=== PATIENT | female | born 1945 | race Caucasian/White ===

== ENCOUNTER → 2018-02-06 | Outpatient (CLI) | payer MEDICARE, OTHER ==
[~2018-02-06] MED LIST: ACET500 PO; ALBU3IS INH; ALBU90OI INH; ALBU90OI61 INH; ASPI81CH PO; AZAT50 PO; AZIT250 PO; AZIT500 PO; Amoxicillin500 MG PO; BUME2 PO; CALGLU500; CALTRATE 600 +1 EACH PO; CARB50; CEFU250; CEPH500 PO; DICY20 PO; DILT120; DILT240 PO; DIOVAN/HCTZ; DIPATR PO; DOCU100 PO; ELIQUIS5 MG PO; FLUC150A PO; FLUT.05NI; FURO20 PO; GLIP2.5ER PO; HYDACE10; HYDCHL25; HYDHCL25 PO; HYDSUL200 PO; IBUP600 PO; IPRAOI INH; LACT10SY PO; LEVFLO500 PO; LEVSOD125; LEVSOD150; LEVSOD150 PO; LEVSOD175 PO; MAGCHL64ER; METO100 PO; MUPI1NAS; NITRSPRAY SL; OLME40 PO; OLOP.1OPSO BOTHEYES; OLOP.1OPSO OD; OMEG1CAP30 PO; OMEP20ER; OXYACE5T PO; OXYC10TA19 PO; OXYC30 PO; OXYC40ER PO; OXYC5; OXYC5 PO; PANT40; PANT40 PO; POTA10T PO; POTA20PAC PO; POTCHL10ER; POTCHL20ER; PROP10 PO; PROP20; PROP40; PROP40 PO; RXPROM25 PO; SALM50IP IH; SENN187 PO; SIME80CH PO; SUCR1 PO; Ultram50 MG PO; VALS80; VARE1 PO; WARF5 PO; Zofran Odt8 MG SL; [UNRECOGNIZED DRUG - CODE] PO; [UNRECOGNIZED DRUG - REMARK]; levothyroxine; oxygen
[2018-02-10 13:30] LABS: Stool Occult Bld Immuno 1 Negative (NEGATIVE); Stool Occult Bld Immuno 2 Negative (NEGATIVE)
== END ==
LOC: OLS 14:55
PROVIDERS: Internal Medicine Gastroenterology
DX: Z86.010 Personal history of colon polyps (principal)
CPT/HCPCS: 82274

== ENCOUNTER → 2019-01-21 | Outpatient (CLI) | payer MEDICARE, OTHER ==
[2019-01-22 08:03] LABS: Source, Urine Clean Catch
[2019-01-22 16:28] LABS: Appearance, Urine Clear (Clear); Bilirubin, Urine Neg (Neg); Blood, Urine 1+ (Neg); Color, Urine Yellow (P-Yellow); Glucose Qualitative, Urine Neg (Neg); Ketones, Urine Neg (Neg); Leukocyte Esterase, Urine 2+ (Neg); Nitrite, Urine Neg (Neg); Protein, Urine Neg (Neg); Urobilinogen, Urine NORM (Normal)
[2019-01-22 16:40] LABS: Bacteria Few /hpf; Squamous Epithelial Cells Few /hpf (Few)
== END ==
LOC: LAB SHORT 18:00 → LAB 18:00
PROVIDERS: Nurse Practitioner Family
DX: N39.0 Urinary tract infection, site not specified (principal)
CPT/HCPCS: 81001; 87086

== ENCOUNTER 2019-02-03 14:17 | Emergency (ER) | payer MEDICARE, OTHER ==
[~2019-02-03] VITALS: Ht 147.3 cm; Wt 72.6 kg
[2019-02-03] MEDS ORDERED: OXYC15ER PO (15:04)
== END 2019-02-03 15:24 | disposition home or self-care (01) ==
LOC: ER 14:17
DX: T20.26XA Burn of second degree of forehead and cheek, initial encounter (principal); T20.22XA Burn of second degree of lip(s), initial encounter; T31.0 Burns involving less than 10% of body surface; X08.8XXA Exposure to other specified smoke, fire and flames, initial encounter; Z88.2 Allergy status to sulfonamides; Z91.041 Radiographic dye allergy status; Z88.8 Allergy status to other drugs, medicaments and biological substances; Z91.013 Allergy to seafood; Z79.899 Other long term (current) drug therapy; J44.9 Chronic obstructive pulmonary disease, unspecified; I10 Essential (primary) hypertension
CPT/HCPCS: 16020; 99283-25

== ENCOUNTER 2019-02-04 12:14 | Day surgery (SDC) | payer MEDICARE, OTHER ==
[~2019-02-04 12:14] MED LIST changes: +OXYC15ER PO
== END 2019-02-04 22:46 | disposition home or self-care (01) ==
LOC: WOUND 12:14
DX: T28.0XXA Burn of mouth and pharynx, initial encounter (principal); T20.30XA Burn of third degree of head, face, and neck, unspecified site, initial encounter; I11.0 Hypertensive heart disease with heart failure; I50.9 Heart failure, unspecified; E11.9 Type 2 diabetes mellitus without complications; I25.10 Atherosclerotic heart disease of native coronary artery without angina pectoris; J44.9 Chronic obstructive pulmonary disease, unspecified; E78.5 Hyperlipidemia, unspecified; F17.200 Nicotine dependence, unspecified, uncomplicated; Z88.2 Allergy status to sulfonamides; Z99.81 Dependence on supplemental oxygen; Z91.041 Radiographic dye allergy status; Z91.013 Allergy to seafood; Z88.8 Allergy status to other drugs, medicaments and biological substances
CPT/HCPCS: G0463

== ENCOUNTER 2019-02-05 15:00 | Day surgery (SDC) | payer MEDICARE, OTHER | END 2019-02-05 22:46 | disposition home or self-care (01) | LOC: WOUND 15:00 | DX: T28.0XXA Burn of mouth and pharynx, initial encounter (principal); T20.30XA Burn of third degree of head, face, and neck, unspecified site, initial encounter; I11.0 Hypertensive heart disease with heart failure; I50.9 Heart failure, unspecified; E11.9 Type 2 diabetes mellitus without complications; I25.10 Atherosclerotic heart disease of native coronary artery without angina pectoris; J44.9 Chronic obstructive pulmonary disease, unspecified; Z99.81 Dependence on supplemental oxygen; E78.5 Hyperlipidemia, unspecified | CPT/HCPCS: G0463 ==

== ENCOUNTER 2019-02-12 13:45 | Day surgery (SDC) | payer MEDICARE, OTHER | END 2019-02-12 23:00 | disposition home or self-care (01) | LOC: WOUND 13:45 | DX: T28.0XXA Burn of mouth and pharynx, initial encounter (principal); T20.30XA Burn of third degree of head, face, and neck, unspecified site, initial encounter; I11.0 Hypertensive heart disease with heart failure; I50.9 Heart failure, unspecified; I25.10 Atherosclerotic heart disease of native coronary artery without angina pectoris; E11.9 Type 2 diabetes mellitus without complications; J44.9 Chronic obstructive pulmonary disease, unspecified; E78.5 Hyperlipidemia, unspecified ==

== ENCOUNTER 2019-02-17 15:03 | Day surgery (SDC) | payer MEDICARE, OTHER | END 2019-02-17 22:43 | disposition home or self-care (01) | LOC: WOUND 15:03 | DX: Z09 Encounter for follow-up examination after completed treatment for conditions other than malignant neoplasm (principal); J44.9 Chronic obstructive pulmonary disease, unspecified; I11.0 Hypertensive heart disease with heart failure; I50.9 Heart failure, unspecified; E11.9 Type 2 diabetes mellitus without complications; E78.5 Hyperlipidemia, unspecified; M32.9 Systemic lupus erythematosus, unspecified; Z87.828 Personal history of other (healed) physical injury and trauma | CPT/HCPCS: G0463 ==

== ENCOUNTER → 2019-04-14 | Outpatient (CLI) | payer MEDICARE, OTHER ==
[2019-04-14 18:42] LABS: Source, Urine Catheter
[2019-04-14 19:00] LABS: Bilirubin, Urine Neg (Neg); Blood, Urine 1+ (Neg); Glucose Qualitative, Urine Neg (Neg); Ketones, Urine Neg (Neg); Leukocyte Esterase, Urine Neg (Neg); Nitrite, Urine Neg (Neg); Protein, Urine Neg (Neg); Urobilinogen, Urine NORM (Normal)
[2019-04-14 19:23] LABS: Appearance, Urine Hazy (Clear); Color, Urine Yellow (P-Yellow)
[2019-04-14 19:25] LABS: Squamous Epithelial Cells Few /hpf (Few)
[2019-04-14 19:28] LABS: Bacteria Rare /hpf; Red Blood Cells, Urine 0-2 /hpf (0-2)
== END | disposition home or self-care (01) ==
LOC: LAB 18:41 → LAB SHORT 18:41
PROVIDERS: Nurse Practitioner Women's Health
DX: R30.0 Dysuria (principal)
CPT/HCPCS: 81001

== ENCOUNTER 2019-10-09 19:42 | Emergency (ER) | payer MEDICARE, OTHER ==
[~2019-10-09] VITALS: Ht 154.9 cm; Wt 72.6 kg
[2019-10-09 20:26] LABS: BASOPHILS ABSOLUTE AUTO 0.02 K/mm3 (0.00-0.23); BASOPHILS PERCENT AUTO 0 % (0-2); EOSINOPHILS ABSOLUTE AUTO 0.02 K/mm3 (0.00-0.68); EOSINOPHILS PERCENT AUTO 0 % (0-6); Hematocrit 44.3 % (33.0-51.0); Hemoglobin 13.3 g/dL (11.5-16.0); IMMATURE GRAN ABSOLUTE AUTO 0.03 K/mm3 (0.00-0.10); IMMATURE GRAN PERCENT AUTO 0 % (0-1); LYMPHOCYTES ABSOLUTE AUTO 1.04 K/mm3 (0.84-5.20); LYMPHOCYTES PERCENT AUTO 12 % (21-46); MONOCYTES ABSOLUTE AUTO 0.61 K/mm3 (0.16-1.47); MONOCYTES PERCENT AUTO 7 % (4-13); Mean Corpuscular HGB 26.1 pg (26.0-34.0); Mean Corpuscular Volume 87 fL (80-100); Mean Platelet Volume 12.4 fL (9.1-12.4); NEUTROPHILS ABSOLUTE AUTO 6.82 K/mm3 (1.96-9.15); NEUTROPHILS PERCENT AUTO 80 % (41-73); Platelet Count 166 K/mm3 (150-400); RDW Coefficient Variation 14.9 % (11.7-14.2); RDW Standard Deviation 47.6 fL (35.1-46.3); Red Blood Cell Count 5.09 M/mm3 (3.80-5.20); White Blood Cell Count 8.54 K/mm3 (4.00-11.30)
[2019-10-09 20:47] LABS: Alanine Aminotransfer (ALT/SGP 30 U/L (12-78); Albumin, Blood 3.7 g/dL (3.4-5.0); Alk Phos 90 U/L (50-136); Anion Gap 4 mmol/L (6-16); Aspartate Aminotrans (AST/SGOT 37 U/L (12-37); Bilirubin, Total 1.2 mg/dL (0.1-1.0); Blood Urea Nitrogen 30 mg/dL (8-24); Bun/Creatinine Ratio 32.8 (12.0-20.0); CO2, Blood 37 mmol/L (21-32); Calcium, Blood 9.5 mg/dL (8.5-10.1); Chloride, Blood 98 mmol/L (98-108); Creatinine, Blood 0.92 mg/dL (0.40-1.00); Globulin, Blood 3.8 g/dL (2.2-4.0); Glomerular Filtration Rate >60 (60-); Glucose, Blood 127 mg/dL (70-99); Potassium, Blood 3.7 mmol/L (3.5-5.5); Sodium, Blood 139 mmol/L (136-145); Total Protein, Blood 7.5 g/dL (6.4-8.2)
[2019-10-09 21:27] LABS: Source, Urine Catheter
[2019-10-09 21:34] LABS: Bilirubin, Urine Neg (Neg); Blood, Urine Neg (Neg); Glucose Qualitative, Urine Neg (Neg); Ketones, Urine Neg (Neg); Leukocyte Esterase, Urine Neg (Neg); Nitrite, Urine Neg (Neg); Protein, Urine Neg (Neg); Urobilinogen, Urine NORM (Normal)
[2019-10-09 21:36] LABS: Appearance, Urine Clear (Clear); Color, Urine Yellow (P-Yellow)
== END 2019-10-09 23:40 | disposition home or self-care (01) ==
LOC: ER 19:42
PROVIDERS: Physician Assistant
DX: R60.0 Localized edema (principal); I10 Essential (primary) hypertension; J44.9 Chronic obstructive pulmonary disease, unspecified; F17.210 Nicotine dependence, cigarettes, uncomplicated; Z79.899 Other long term (current) drug therapy
CPT/HCPCS: 36415; 51798; 71046; 80053; 81003; 83880; 85025; 96374; 99284-25; J1940

== ENCOUNTER 2020-06-07 13:59 | Inpatient (IN) | payer MEDICARE, OTHER ==
[~2020-06-07] VITALS: Ht 154.9 cm; Wt 74.6 kg
[~2020-06-07 13:59] MED LIST changes: +ACET325 PO; +ELIQUIS2.5 MG PO; -ELIQUIS5 MG PO; +EUTHYROX175 MC1 PO; +Estrace Vagin42.5 GM VAG; +METO50 PO; +NITR.4SL SL; -NITRSPRAY SL; +Oxycontin20 MG PO; +ROXICODONE15 MG PO
[2020-06-07 14:34] LABS: PCO2 Arterial 67.9 mmHg (35-45); PO2 Arterial 69.5 mmHg (80-100); pH Blood Arterial 7.12 (7.35-7.45)
[2020-06-07 14:44] LABS: Hematocrit 48.4 % (33.0-51.0); Hemoglobin 14.6 g/dL (11.5-16.0); Mean Corpuscular HGB 27.9 pg (26.0-34.0); Mean Corpuscular HGB Conc 30.2 g/dL (31.5-36.5); Mean Corpuscular Volume 93 fL (80-100); Mean Platelet Volume 11.9 fL (9.1-12.4); NRBC ABSOLUTE 0.26 K/mm3 (0.00-0.02); NRBC Auto 1.7 /100 WBC (0.0-0.2); Platelet Count 213 K/mm3 (150-400); RDW Coefficient Variation 15.2 % (11.7-14.2); RDW Standard Deviation 51.1 fL (35.1-46.3); Red Blood Cell Count 5.23 M/mm3 (3.80-5.20); White Blood Cell Count 14.99 K/mm3 (4.00-11.30)
[2020-06-07 14:58] LABS: Albumin, Blood 3.4 g/dL (3.4-5.0); Albumin/Globulin Ratio 0.7 (0.8-1.8); Bilirubin, Total 0.9 mg/dL (0.1-1.0); Calcium, Blood 9.7 mg/dL (8.5-10.1); Globulin, Blood 4.6 g/dL (2.2-4.0); Troponin I 0.027 ng/mL (0.000-0.040)
[2020-06-07 15:01] LABS: PCO2 Arterial 51.4 mmHg (35-45); PO2 Arterial 48.8 mmHg (80-100); pH Blood Arterial 7.29 (7.35-7.45)
[2020-06-07 15:03] LABS: International Normalized Ratio 1.16; Prothrombin Time Results 12.3 Sec (9.7-11.5)
[2020-06-07 15:12] LABS: BAND PERCENT MAN 1 % (0-8); BASOPHILS ABSOLUTE MAN 0.14 K/mm3 (0.00-0.23); BASOPHILS PERCENT MAN 1 % (0-2); EOSINOPHILS PERCENT MAN 0 % (0-6); LYMPHOCYTES % ATYPICAL MANUAL 2 % (0-0); LYMPHOCYTES ABSOLUTE MAN 3.14 K/mm3 (0.84-5.20); LYMPHOCYTES PERCENT MAN 19 % (21-46); METAMYELOCYTE ABSOLUTE MAN 0.59 K/mm3 (0.00-0.00); METAMYELOCYTE PERCENT MAN 4 % (0-0); MONOCYTES ABSOLUTE MAN 0.44 K/mm3 (0.16-1.47); MONOCYTES PERCENT MAN 3 % (4-13); NEUTROPHILS ABSOLUTE MAN 10.64 K/mm3 (1.96-9.15); SEG NEUTROPHILS PERCENT MAN 70 % (41-73); TOTAL CELLS COUNTED 100
[2020-06-07 15:48] LABS: PCO2 Arterial 39.9 mmHg (35-45); PO2 Arterial 68.2 mmHg (80-100); pH Blood Arterial 7.41 (7.35-7.45)
[2020-06-07] MEDS ORDERED: FUROSEMIDE40 MG PO (16:36)
[2020-06-07] MEDS ORDERED: Metoprolol Tar100 MG PO (16:36)
[2020-06-07] MEDS ORDERED: ROXICODONE15 MG PO (16:37)
[2020-06-07 21:06] LABS: PO2 Arterial 55.6 mmHg (80-100); pH Blood Arterial 7.41 (7.35-7.45)
[2020-06-08 03:40] LABS: BASOPHILS ABSOLUTE AUTO 0.04 K/mm3 (0.00-0.23); BASOPHILS PERCENT AUTO 0 % (0-2); EOSINOPHILS PERCENT AUTO 0 % (0-6); Hematocrit 38.5 % (33.0-51.0); Hemoglobin 12.2 g/dL (11.5-16.0); IMMATURE GRAN ABSOLUTE AUTO 0.18 K/mm3 (0.00-0.10); IMMATURE GRAN PERCENT AUTO 1 % (0-1); LYMPHOCYTES ABSOLUTE AUTO 1.09 K/mm3 (0.84-5.20); LYMPHOCYTES PERCENT AUTO 4 % (21-46); MONOCYTES ABSOLUTE AUTO 1.58 K/mm3 (0.16-1.47); MONOCYTES PERCENT AUTO 6 % (4-13); Mean Corpuscular HGB Conc 31.7 g/dL (31.5-36.5); Mean Platelet Volume 11.5 fL (9.1-12.4); NEUTROPHILS ABSOLUTE AUTO 21.77 K/mm3 (1.96-9.15); NEUTROPHILS PERCENT AUTO 88 % (41-73); Platelet Count 198 K/mm3 (150-400); RDW Coefficient Variation 14.7 % (11.7-14.2); RDW Standard Deviation 46.5 fL (35.1-46.3); Red Blood Cell Count 4.36 M/mm3 (3.80-5.20); White Blood Cell Count 24.66 K/mm3 (4.00-11.30)
[2020-06-08 03:49] LABS: Mean Corpuscular Volume 88 fL (80-100)
[2020-06-08 04:21] LABS: Albumin, Blood 2.4 g/dL (3.4-5.0); Albumin/Globulin Ratio 0.7 (0.8-1.8); Bilirubin, Total 0.7 mg/dL (0.1-1.0); Bun/Creatinine Ratio 26.4 (12.0-20.0); Calcium, Blood 8.9 mg/dL (8.5-10.1); Creatinine, Blood 1.06 mg/dL (0.40-1.00); Globulin, Blood 3.3 g/dL (2.2-4.0); Potassium, Blood 3.3 mmol/L (3.5-5.5); Total Protein, Blood 5.7 g/dL (6.4-8.2)
[2020-06-08 05:05] LABS: PCO2 Arterial 39.9 mmHg (35-45); PO2 Arterial 105 mmHg (80-100); pH Blood Arterial 7.55 (7.35-7.45)
[2020-06-08 13:59] LABS: International Normalized Ratio 1.23
[2020-06-08 14:39] LABS: BASOPHILS ABSOLUTE AUTO 0.03 K/mm3 (0.00-0.23); BASOPHILS PERCENT AUTO 0 % (0-2); EOSINOPHILS PERCENT AUTO 0 % (0-6); Hematocrit 37.2 % (33.0-51.0); Hemoglobin 11.7 g/dL (11.5-16.0); IMMATURE GRAN ABSOLUTE AUTO 0.13 K/mm3 (0.00-0.10); IMMATURE GRAN PERCENT AUTO 1 % (0-1); LYMPHOCYTES ABSOLUTE AUTO 0.92 K/mm3 (0.84-5.20); LYMPHOCYTES PERCENT AUTO 5 % (21-46); MONOCYTES ABSOLUTE AUTO 1.16 K/mm3 (0.16-1.47); MONOCYTES PERCENT AUTO 6 % (4-13); Mean Corpuscular HGB 27.7 pg (26.0-34.0); Mean Corpuscular HGB Conc 31.5 g/dL (31.5-36.5); Mean Corpuscular Volume 88 fL (80-100); Mean Platelet Volume 12.3 fL (9.1-12.4); NEUTROPHILS ABSOLUTE AUTO 17.19 K/mm3 (1.96-9.15); NEUTROPHILS PERCENT AUTO 88 % (41-73); Platelet Count 183 K/mm3 (150-400); Red Blood Cell Count 4.22 M/mm3 (3.80-5.20); White Blood Cell Count 19.43 K/mm3 (4.00-11.30)
[2020-06-08 15:03] LABS: Albumin, Blood 2.3 g/dL (3.4-5.0); Albumin/Globulin Ratio 0.7 (0.8-1.8); Bun/Creatinine Ratio 22.5 (12.0-20.0); Calcium, Blood 8.7 mg/dL (8.5-10.1); Creatinine, Blood 1.11 mg/dL (0.40-1.00); Globulin, Blood 3.2 g/dL (2.2-4.0); Phosphorus, Blood 1.8 mg/dL (2.5-4.9); Potassium, Blood 4.3 mmol/L (3.5-5.5); Total Protein, Blood 5.5 g/dL (6.4-8.2)
[2020-06-08 15:17] LABS: Troponin I 4.28 ng/mL (0.000-0.040)
[2020-06-09 04:07] LABS: BASOPHILS ABSOLUTE AUTO 0.02 K/mm3 (0.00-0.23); BASOPHILS PERCENT AUTO 0 % (0-2); EOSINOPHILS ABSOLUTE AUTO 0.02 K/mm3 (0.00-0.68); EOSINOPHILS PERCENT AUTO 0 % (0-6); Hematocrit 33.2 % (33.0-51.0); Hemoglobin 10.6 g/dL (11.5-16.0); IMMATURE GRAN ABSOLUTE AUTO 0.09 K/mm3 (0.00-0.10); IMMATURE GRAN PERCENT AUTO 1 % (0-1); LYMPHOCYTES ABSOLUTE AUTO 1.07 K/mm3 (0.84-5.20); LYMPHOCYTES PERCENT AUTO 7 % (21-46); MONOCYTES ABSOLUTE AUTO 0.95 K/mm3 (0.16-1.47); MONOCYTES PERCENT AUTO 7 % (4-13); Mean Corpuscular HGB 28.4 pg (26.0-34.0); Mean Corpuscular HGB Conc 31.9 g/dL (31.5-36.5); Mean Corpuscular Volume 89 fL (80-100); Mean Platelet Volume 11.6 fL (9.1-12.4); NEUTROPHILS PERCENT AUTO 85 % (41-73); Platelet Count 152 K/mm3 (150-400); RDW Coefficient Variation 15.4 % (11.7-14.2); RDW Standard Deviation 49.8 fL (35.1-46.3); Red Blood Cell Count 3.73 M/mm3 (3.80-5.20); White Blood Cell Count 14.45 K/mm3 (4.00-11.30)
[2020-06-09 04:44] LABS: Albumin, Blood 2.1 g/dL (3.4-5.0); Albumin/Globulin Ratio 0.6 (0.8-1.8); Bilirubin, Total 0.8 mg/dL (0.1-1.0); Bun/Creatinine Ratio 19.1 (12.0-20.0); Calcium, Blood 8.8 mg/dL (8.5-10.1); Creatinine, Blood 1.1 mg/dL (0.40-1.00); Globulin, Blood 3.3 g/dL (2.2-4.0); Phosphorus, Blood 2.8 mg/dL (2.5-4.9); Potassium, Blood 3.6 mmol/L (3.5-5.5); Total Protein, Blood 5.4 g/dL (6.4-8.2)
[2020-06-09 04:48] LABS: PCO2 Arterial 40.2 mmHg (35-45); PO2 Arterial 51.1 mmHg (80-100); pH Blood Arterial 7.53 (7.35-7.45)
[2020-06-09 05:02] LABS: Troponin I 2.14 ng/mL (0.000-0.040)
[2020-06-10 04:27] LABS: BASOPHILS ABSOLUTE AUTO 0.02 K/mm3 (0.00-0.23); BASOPHILS PERCENT AUTO 0 % (0-2); EOSINOPHILS ABSOLUTE AUTO 0.04 K/mm3 (0.00-0.68); EOSINOPHILS PERCENT AUTO 0 % (0-6); Hematocrit 33.3 % (33.0-51.0); Hemoglobin 10.4 g/dL (11.5-16.0); IMMATURE GRAN ABSOLUTE AUTO 0.05 K/mm3 (0.00-0.10); IMMATURE GRAN PERCENT AUTO 0 % (0-1); LYMPHOCYTES ABSOLUTE AUTO 1.05 K/mm3 (0.84-5.20); LYMPHOCYTES PERCENT AUTO 9 % (21-46); MONOCYTES PERCENT AUTO 7 % (4-13); Mean Corpuscular HGB 28.1 pg (26.0-34.0); Mean Corpuscular HGB Conc 31.2 g/dL (31.5-36.5); Mean Corpuscular Volume 90 fL (80-100); Mean Platelet Volume 12.2 fL (9.1-12.4); NEUTROPHILS ABSOLUTE AUTO 9.81 K/mm3 (1.96-9.15); NEUTROPHILS PERCENT AUTO 83 % (41-73); Platelet Count 145 K/mm3 (150-400); RDW Coefficient Variation 15.4 % (11.7-14.2); RDW Standard Deviation 50.2 fL (35.1-46.3); White Blood Cell Count 11.77 K/mm3 (4.00-11.30)
[2020-06-10 04:44] LABS: Albumin, Blood 2.1 g/dL (3.4-5.0); Albumin/Globulin Ratio 0.6 (0.8-1.8); Bilirubin, Total 0.8 mg/dL (0.1-1.0); Bun/Creatinine Ratio 20.2 (12.0-20.0); Calcium, Blood 8.4 mg/dL (8.5-10.1); Creatinine, Blood 1.04 mg/dL (0.40-1.00); Globulin, Blood 3.3 g/dL (2.2-4.0); Magnesium, Blood 1.9 mg/dL (1.6-2.4); Phosphorus, Blood 2.6 mg/dL (2.5-4.9); Potassium, Blood 3.1 mmol/L (3.5-5.5); Total Protein, Blood 5.4 g/dL (6.4-8.2)
[2020-06-11 03:35] LABS: BASOPHILS ABSOLUTE AUTO 0.01 K/mm3 (0.00-0.23); BASOPHILS PERCENT AUTO 0 % (0-2); EOSINOPHILS ABSOLUTE AUTO 0.04 K/mm3 (0.00-0.68); EOSINOPHILS PERCENT AUTO 0 % (0-6); Hematocrit 33.4 % (33.0-51.0); Hemoglobin 10.2 g/dL (11.5-16.0); IMMATURE GRAN ABSOLUTE AUTO 0.04 K/mm3 (0.00-0.10); IMMATURE GRAN PERCENT AUTO 0 % (0-1); LYMPHOCYTES ABSOLUTE AUTO 0.93 K/mm3 (0.84-5.20); LYMPHOCYTES PERCENT AUTO 9 % (21-46); MONOCYTES ABSOLUTE AUTO 0.66 K/mm3 (0.16-1.47); MONOCYTES PERCENT AUTO 7 % (4-13); Mean Corpuscular HGB 27.6 pg (26.0-34.0); Mean Corpuscular HGB Conc 30.5 g/dL (31.5-36.5); Mean Corpuscular Volume 91 fL (80-100); Mean Platelet Volume 11.4 fL (9.1-12.4); NEUTROPHILS ABSOLUTE AUTO 8.38 K/mm3 (1.96-9.15); NEUTROPHILS PERCENT AUTO 83 % (41-73); Platelet Count 149 K/mm3 (150-400); RDW Coefficient Variation 15.3 % (11.7-14.2); RDW Standard Deviation 50.6 fL (35.1-46.3); Red Blood Cell Count 3.69 M/mm3 (3.80-5.20); White Blood Cell Count 10.06 K/mm3 (4.00-11.30)
[2020-06-11 03:54] LABS: Albumin, Blood 2.1 g/dL (3.4-5.0); Albumin/Globulin Ratio 0.6 (0.8-1.8); Bilirubin, Total 0.8 mg/dL (0.1-1.0); Bun/Creatinine Ratio 23.8 (12.0-20.0); Calcium, Blood 8.5 mg/dL (8.5-10.1); Creatinine, Blood 0.97 mg/dL (0.40-1.00); Globulin, Blood 3.3 g/dL (2.2-4.0); Magnesium, Blood 1.9 mg/dL (1.6-2.4); Phosphorus, Blood 2.3 mg/dL (2.5-4.9); Potassium, Blood 3.4 mmol/L (3.5-5.5); Total Protein, Blood 5.4 g/dL (6.4-8.2)
[2020-06-12 02:19] LABS: BASOPHILS ABSOLUTE AUTO 0.01 K/mm3 (0.00-0.23); BASOPHILS PERCENT AUTO 0 % (0-2); EOSINOPHILS ABSOLUTE AUTO 0.02 K/mm3 (0.00-0.68); EOSINOPHILS PERCENT AUTO 0 % (0-6); Hematocrit 34.5 % (33.0-51.0); Hemoglobin 10.6 g/dL (11.5-16.0); IMMATURE GRAN ABSOLUTE AUTO 0.06 K/mm3 (0.00-0.10); IMMATURE GRAN PERCENT AUTO 1 % (0-1); LYMPHOCYTES ABSOLUTE AUTO 1.07 K/mm3 (0.84-5.20); LYMPHOCYTES PERCENT AUTO 10 % (21-46); MONOCYTES ABSOLUTE AUTO 0.85 K/mm3 (0.16-1.47); MONOCYTES PERCENT AUTO 8 % (4-13); Mean Corpuscular HGB 27.6 pg (26.0-34.0); Mean Corpuscular HGB Conc 30.7 g/dL (31.5-36.5); Mean Corpuscular Volume 90 fL (80-100); Mean Platelet Volume 11.8 fL (9.1-12.4); NEUTROPHILS ABSOLUTE AUTO 8.79 K/mm3 (1.96-9.15); NEUTROPHILS PERCENT AUTO 81 % (41-73); Platelet Count 158 K/mm3 (150-400); RDW Coefficient Variation 15.4 % (11.7-14.2); RDW Standard Deviation 50.4 fL (35.1-46.3); Red Blood Cell Count 3.84 M/mm3 (3.80-5.20)
[2020-06-12 02:35] LABS: Albumin, Blood 2.3 g/dL (3.4-5.0); Albumin/Globulin Ratio 0.6 (0.8-1.8); Bilirubin, Total 0.8 mg/dL (0.1-1.0); Bun/Creatinine Ratio 24.5 (12.0-20.0); Creatinine, Blood 1.02 mg/dL (0.40-1.00); Globulin, Blood 3.7 g/dL (2.2-4.0); Magnesium, Blood 1.9 mg/dL (1.6-2.4); Phosphorus, Blood 1.8 mg/dL (2.5-4.9); Potassium, Blood 3.5 mmol/L (3.5-5.5)
[2020-06-13 01:11] LABS: BASOPHILS ABSOLUTE AUTO 0.05 K/mm3 (0.00-0.23); BASOPHILS PERCENT AUTO 1 % (0-2); EOSINOPHILS ABSOLUTE AUTO 0.06 K/mm3 (0.00-0.68); EOSINOPHILS PERCENT AUTO 1 % (0-6); Hematocrit 41.3 % (33.0-51.0); Hemoglobin 12.5 g/dL (11.5-16.0); IMMATURE GRAN PERCENT AUTO 1 % (0-1); LYMPHOCYTES ABSOLUTE AUTO 1.11 K/mm3 (0.84-5.20); LYMPHOCYTES PERCENT AUTO 10 % (21-46); MONOCYTES ABSOLUTE AUTO 0.88 K/mm3 (0.16-1.47); MONOCYTES PERCENT AUTO 8 % (4-13); Mean Corpuscular HGB 27.7 pg (26.0-34.0); Mean Corpuscular HGB Conc 30.3 g/dL (31.5-36.5); Mean Corpuscular Volume 91 fL (80-100); Mean Platelet Volume 11.7 fL (9.1-12.4); NEUTROPHILS ABSOLUTE AUTO 8.82 K/mm3 (1.96-9.15); NEUTROPHILS PERCENT AUTO 80 % (41-73); Platelet Count 147 K/mm3 (150-400); RDW Coefficient Variation 15.6 % (11.7-14.2); RDW Standard Deviation 51.8 fL (35.1-46.3); Red Blood Cell Count 4.52 M/mm3 (3.80-5.20); White Blood Cell Count 11.02 K/mm3 (4.00-11.30)
[2020-06-13 01:27] LABS: Albumin, Blood 2.4 g/dL (3.4-5.0); Anion Gap 6 mmol/L (6-16); Blood Urea Nitrogen 26 mg/dL (8-24); Bun/Creatinine Ratio 25.7 (12.0-20.0); CO2, Blood 28 mmol/L (21-32); Chloride, Blood 112 mmol/L (98-108); Creatinine, Blood 1.01 mg/dL (0.40-1.00); Glomerular Filtration Rate 57 (60-); Glucose, Blood 153 mg/dL (70-99); Magnesium, Blood 2.1 mg/dL (1.6-2.4); Potassium, Blood 4.1 mmol/L (3.5-5.5); Sodium, Blood 146 mmol/L (136-145)
[2020-06-14 05:14] LABS: BASOPHILS ABSOLUTE AUTO 0.04 K/mm3 (0.00-0.23); BASOPHILS PERCENT AUTO 0 % (0-2); EOSINOPHILS ABSOLUTE AUTO 0.02 K/mm3 (0.00-0.68); EOSINOPHILS PERCENT AUTO 0 % (0-6); Hematocrit 35.9 % (33.0-51.0); Hemoglobin 10.9 g/dL (11.5-16.0); IMMATURE GRAN ABSOLUTE AUTO 0.11 K/mm3 (0.00-0.10); IMMATURE GRAN PERCENT AUTO 1 % (0-1); LYMPHOCYTES ABSOLUTE AUTO 1.26 K/mm3 (0.84-5.20); LYMPHOCYTES PERCENT AUTO 9 % (21-46); MONOCYTES ABSOLUTE AUTO 1.12 K/mm3 (0.16-1.47); MONOCYTES PERCENT AUTO 8 % (4-13); Mean Corpuscular HGB 27.5 pg (26.0-34.0); Mean Corpuscular HGB Conc 30.4 g/dL (31.5-36.5); Mean Corpuscular Volume 91 fL (80-100); Mean Platelet Volume 11.6 fL (9.1-12.4); NEUTROPHILS ABSOLUTE AUTO 10.96 K/mm3 (1.96-9.15); NEUTROPHILS PERCENT AUTO 81 % (41-73); Platelet Count 183 K/mm3 (150-400); RDW Coefficient Variation 15.3 % (11.7-14.2); RDW Standard Deviation 50.4 fL (35.1-46.3); Red Blood Cell Count 3.96 M/mm3 (3.80-5.20); White Blood Cell Count 13.51 K/mm3 (4.00-11.30)
[2020-06-14 05:31] LABS: Albumin, Blood 2.4 g/dL (3.4-5.0); Anion Gap 5 mmol/L (6-16); Blood Urea Nitrogen 28 mg/dL (8-24); Bun/Creatinine Ratio 29.1 (12.0-20.0); CO2, Blood 27 mmol/L (21-32); Calcium, Blood 9.1 mg/dL (8.5-10.1); Chloride, Blood 113 mmol/L (98-108); Creatinine, Blood 0.96 mg/dL (0.40-1.00); Glomerular Filtration Rate 60 (60-); Glucose, Blood 145 mg/dL (70-99); Phosphorus, Blood 2.4 mg/dL (2.5-4.9); Potassium, Blood 3.8 mmol/L (3.5-5.5); Sodium, Blood 145 mmol/L (136-145)
[2020-06-15 10:34] LABS: BASOPHILS ABSOLUTE AUTO 0.05 K/mm3 (0.00-0.23); BASOPHILS PERCENT AUTO 0 % (0-2); EOSINOPHILS ABSOLUTE AUTO 0.31 K/mm3 (0.00-0.68); EOSINOPHILS PERCENT AUTO 2 % (0-6); Hematocrit 39.5 % (33.0-51.0); Hemoglobin 12.1 g/dL (11.5-16.0); IMMATURE GRAN ABSOLUTE AUTO 0.17 K/mm3 (0.00-0.10); IMMATURE GRAN PERCENT AUTO 1 % (0-1); LYMPHOCYTES ABSOLUTE AUTO 1.18 K/mm3 (0.84-5.20); LYMPHOCYTES PERCENT AUTO 8 % (21-46); MONOCYTES ABSOLUTE AUTO 1.12 K/mm3 (0.16-1.47); MONOCYTES PERCENT AUTO 7 % (4-13); Mean Corpuscular HGB 27.6 pg (26.0-34.0); Mean Corpuscular HGB Conc 30.6 g/dL (31.5-36.5); Mean Corpuscular Volume 90 fL (80-100); Mean Platelet Volume 11.4 fL (9.1-12.4); NEUTROPHILS ABSOLUTE AUTO 12.82 K/mm3 (1.96-9.15); NEUTROPHILS PERCENT AUTO 82 % (41-73); Platelet Count 251 K/mm3 (150-400); RDW Coefficient Variation 15.5 % (11.7-14.2); RDW Standard Deviation 50.9 fL (35.1-46.3); Red Blood Cell Count 4.39 M/mm3 (3.80-5.20); White Blood Cell Count 15.65 K/mm3 (4.00-11.30)
[2020-06-15 10:49] LABS: Anion Gap 6 mmol/L (6-16); Blood Urea Nitrogen 29 mg/dL (8-24); Bun/Creatinine Ratio 28.4 (12.0-20.0); CO2, Blood 27 mmol/L (21-32); Chloride, Blood 110 mmol/L (98-108); Creatinine, Blood 1.02 mg/dL (0.40-1.00); Glomerular Filtration Rate 56 (60-); Glucose, Blood 158 mg/dL (70-99); Potassium, Blood 3.1 mmol/L (3.5-5.5); Sodium, Blood 143 mmol/L (136-145); Vancomycin, Trough 11.6 ug/mL (5.0-10.0)
[2020-06-16 03:40] LABS: BASOPHILS ABSOLUTE AUTO 0.03 K/mm3 (0.00-0.23); BASOPHILS PERCENT AUTO 0 % (0-2); EOSINOPHILS ABSOLUTE AUTO 0.03 K/mm3 (0.00-0.68); EOSINOPHILS PERCENT AUTO 0 % (0-6); Hemoglobin 12.1 g/dL (11.5-16.0); IMMATURE GRAN PERCENT AUTO 1 % (0-1); LYMPHOCYTES ABSOLUTE AUTO 0.92 K/mm3 (0.84-5.20); LYMPHOCYTES PERCENT AUTO 8 % (21-46); MONOCYTES ABSOLUTE AUTO 0.65 K/mm3 (0.16-1.47); MONOCYTES PERCENT AUTO 6 % (4-13); Mean Corpuscular HGB 27.7 pg (26.0-34.0); Mean Corpuscular Volume 89 fL (80-100); Mean Platelet Volume 11.4 fL (9.1-12.4); NEUTROPHILS ABSOLUTE AUTO 9.71 K/mm3 (1.96-9.15); NEUTROPHILS PERCENT AUTO 85 % (41-73); Platelet Count 246 K/mm3 (150-400); RDW Coefficient Variation 15.4 % (11.7-14.2); RDW Standard Deviation 50.5 fL (35.1-46.3); Red Blood Cell Count 4.37 M/mm3 (3.80-5.20); White Blood Cell Count 11.44 K/mm3 (4.00-11.30)
[2020-06-16 03:57] LABS: Bun/Creatinine Ratio 27.2 (12.0-20.0); Calcium, Blood 9.4 mg/dL (8.5-10.1); Creatinine, Blood 0.99 mg/dL (0.40-1.00); Potassium, Blood 3.6 mmol/L (3.5-5.5)
[2020-06-16] MEDS ORDERED: LACT10SY PO (04:32)
[2020-06-17 05:36] LABS: BASOPHILS ABSOLUTE AUTO 0.04 K/mm3 (0.00-0.23); BASOPHILS PERCENT AUTO 0 % (0-2); EOSINOPHILS ABSOLUTE AUTO 0.05 K/mm3 (0.00-0.68); EOSINOPHILS PERCENT AUTO 0 % (0-6); Hematocrit 40.6 % (33.0-51.0); Hemoglobin 12.6 g/dL (11.5-16.0); IMMATURE GRAN ABSOLUTE AUTO 0.13 K/mm3 (0.00-0.10); IMMATURE GRAN PERCENT AUTO 1 % (0-1); LYMPHOCYTES ABSOLUTE AUTO 1.35 K/mm3 (0.84-5.20); LYMPHOCYTES PERCENT AUTO 11 % (21-46); MONOCYTES PERCENT AUTO 8 % (4-13); Mean Corpuscular HGB 27.7 pg (26.0-34.0); Mean Corpuscular Volume 89 fL (80-100); Mean Platelet Volume 11.7 fL (9.1-12.4); NEUTROPHILS ABSOLUTE AUTO 9.65 K/mm3 (1.96-9.15); NEUTROPHILS PERCENT AUTO 79 % (41-73); Platelet Count 297 K/mm3 (150-400); RDW Coefficient Variation 15.7 % (11.7-14.2); RDW Standard Deviation 50.6 fL (35.1-46.3); Red Blood Cell Count 4.55 M/mm3 (3.80-5.20); White Blood Cell Count 12.22 K/mm3 (4.00-11.30)
[2020-06-17 05:58] LABS: Anion Gap 7 mmol/L (6-16); Blood Urea Nitrogen 27 mg/dL (8-24); Bun/Creatinine Ratio 28.2 (12.0-20.0); CO2, Blood 26 mmol/L (21-32); Calcium, Blood 9.1 mg/dL (8.5-10.1); Chloride, Blood 108 mmol/L (98-108); Creatinine, Blood 0.96 mg/dL (0.40-1.00); Glomerular Filtration Rate >60 (60-); Glucose, Blood 102 mg/dL (70-99); Potassium, Blood 2.8 mmol/L (3.5-5.5); Sodium, Blood 141 mmol/L (136-145)
[2020-06-17 08:25] LABS: Phosphorus, Blood 3.9 mg/dL (2.5-4.9)
[2020-06-18 05:03] LABS: BASOPHILS ABSOLUTE AUTO 0.05 K/mm3 (0.00-0.23); BASOPHILS PERCENT AUTO 0 % (0-2); EOSINOPHILS ABSOLUTE AUTO 0.07 K/mm3 (0.00-0.68); EOSINOPHILS PERCENT AUTO 1 % (0-6); Hematocrit 40.6 % (33.0-51.0); Hemoglobin 12.4 g/dL (11.5-16.0); IMMATURE GRAN ABSOLUTE AUTO 0.12 K/mm3 (0.00-0.10); IMMATURE GRAN PERCENT AUTO 1 % (0-1); LYMPHOCYTES PERCENT AUTO 13 % (21-46); MONOCYTES ABSOLUTE AUTO 1.01 K/mm3 (0.16-1.47); MONOCYTES PERCENT AUTO 8 % (4-13); Mean Corpuscular HGB 27.9 pg (26.0-34.0); Mean Corpuscular HGB Conc 30.5 g/dL (31.5-36.5); Mean Corpuscular Volume 91 fL (80-100); Mean Platelet Volume 11.9 fL (9.1-12.4); NEUTROPHILS ABSOLUTE AUTO 9.89 K/mm3 (1.96-9.15); NEUTROPHILS PERCENT AUTO 77 % (41-73); Platelet Count 287 K/mm3 (150-400); RDW Coefficient Variation 15.6 % (11.7-14.2); RDW Standard Deviation 51.6 fL (35.1-46.3); Red Blood Cell Count 4.44 M/mm3 (3.80-5.20); White Blood Cell Count 12.84 K/mm3 (4.00-11.30)
[2020-06-18 05:33] LABS: Bun/Creatinine Ratio 27.4 (12.0-20.0); Calcium, Blood 9.2 mg/dL (8.5-10.1); Creatinine, Blood 1.06 mg/dL (0.40-1.00); Magnesium, Blood 2.1 mg/dL (1.6-2.4); Potassium, Blood 3.2 mmol/L (3.5-5.5)
[2020-06-19 05:59] LABS: Hematocrit 40.7 % (33.0-51.0); Hemoglobin 12.6 g/dL (11.5-16.0); Mean Corpuscular HGB 28.1 pg (26.0-34.0); Mean Corpuscular Volume 91 fL (80-100); Mean Platelet Volume 11.5 fL (9.1-12.4); Platelet Count 287 K/mm3 (150-400); RDW Coefficient Variation 15.6 % (11.7-14.2); RDW Standard Deviation 50.5 fL (35.1-46.3); Red Blood Cell Count 4.49 M/mm3 (3.80-5.20); White Blood Cell Count 15.18 K/mm3 (4.00-11.30)
[2020-06-19 06:01] LABS: Bun/Creatinine Ratio 23.5 (12.0-20.0); Calcium, Blood 9.8 mg/dL (8.5-10.1); Creatinine, Blood 1.19 mg/dL (0.40-1.00); Potassium, Blood 3.5 mmol/L (3.5-5.5)
[2020-06-20 04:32] LABS: BASOPHILS ABSOLUTE AUTO 0.03 K/mm3 (0.00-0.23); BASOPHILS PERCENT AUTO 0 % (0-2); EOSINOPHILS ABSOLUTE AUTO 0.08 K/mm3 (0.00-0.68); EOSINOPHILS PERCENT AUTO 1 % (0-6); Hematocrit 38.8 % (33.0-51.0); Hemoglobin 11.9 g/dL (11.5-16.0); IMMATURE GRAN ABSOLUTE AUTO 0.09 K/mm3 (0.00-0.10); IMMATURE GRAN PERCENT AUTO 1 % (0-1); LYMPHOCYTES ABSOLUTE AUTO 0.74 K/mm3 (0.84-5.20); LYMPHOCYTES PERCENT AUTO 5 % (21-46); MONOCYTES ABSOLUTE AUTO 0.83 K/mm3 (0.16-1.47); MONOCYTES PERCENT AUTO 5 % (4-13); Mean Corpuscular HGB 27.7 pg (26.0-34.0); Mean Corpuscular HGB Conc 30.7 g/dL (31.5-36.5); Mean Corpuscular Volume 90 fL (80-100); NEUTROPHILS ABSOLUTE AUTO 14.73 K/mm3 (1.96-9.15); NEUTROPHILS PERCENT AUTO 89 % (41-73); Platelet Count 284 K/mm3 (150-400); RDW Coefficient Variation 15.1 % (11.7-14.2); RDW Standard Deviation 49.7 fL (35.1-46.3)
[2020-06-20 04:47] LABS: Bun/Creatinine Ratio 29.4 (12.0-20.0); Calcium, Blood 9.9 mg/dL (8.5-10.1); Creatinine, Blood 0.99 mg/dL (0.40-1.00); Potassium, Blood 3.2 mmol/L (3.5-5.5)
[2020-06-20 16:06] LABS: Source, Urine Catheter
[2020-06-20 16:17] LABS: Appearance, Urine Clear (Clear); Bilirubin, Urine Neg (Neg); Blood, Urine 1+ (Neg); Color, Urine Yellow (P-Yellow); Glucose Qualitative, Urine Neg (Neg); Ketones, Urine Neg (Neg); Leukocyte Esterase, Urine Neg (Neg); Nitrite, Urine Neg (Neg); Protein, Urine 2+ (Neg); Specific Gravity, Urine 1.015 (1.003-1.022); Urobilinogen, Urine NORM (Normal)
[2020-06-20 16:34] LABS: Bacteria Few /hpf; Mucus Light (0-Heavy); Red Blood Cells, Urine 0-2 /hpf (0-2); Squamous Epithelial Cells Rare /hpf (Few); White Blood Cells, Urine 0-2 /hpf (0-5)
[2020-06-21 08:18] LABS: Hematocrit 38.1 % (33.0-51.0); Hemoglobin 11.7 g/dL (11.5-16.0); Mean Corpuscular HGB 27.5 pg (26.0-34.0); Mean Corpuscular HGB Conc 30.7 g/dL (31.5-36.5); Mean Corpuscular Volume 90 fL (80-100); Mean Platelet Volume 12.3 fL (9.1-12.4); Platelet Count 300 K/mm3 (150-400); RDW Coefficient Variation 15.6 % (11.7-14.2); RDW Standard Deviation 50.1 fL (35.1-46.3); Red Blood Cell Count 4.25 M/mm3 (3.80-5.20); White Blood Cell Count 11.13 K/mm3 (4.00-11.30)
[2020-06-21 08:36] LABS: Anion Gap 4 mmol/L (6-16); Blood Urea Nitrogen 23 mg/dL (8-24); CO2, Blood 28 mmol/L (21-32); Calcium, Blood 9.6 mg/dL (8.5-10.1); Chloride, Blood 104 mmol/L (98-108); Creatinine, Blood 0.89 mg/dL (0.40-1.00); Glomerular Filtration Rate >60 (60-); Glucose, Blood 105 mg/dL (70-99); Potassium, Blood 3.4 mmol/L (3.5-5.5); Sodium, Blood 136 mmol/L (136-145)
[2020-06-22 04:08] LABS: BASOPHILS ABSOLUTE AUTO 0.03 K/mm3 (0.00-0.23); BASOPHILS PERCENT AUTO 0 % (0-2); EOSINOPHILS ABSOLUTE AUTO 0.29 K/mm3 (0.00-0.68); EOSINOPHILS PERCENT AUTO 3 % (0-6); Hematocrit 37.5 % (33.0-51.0); Hemoglobin 11.3 g/dL (11.5-16.0); IMMATURE GRAN ABSOLUTE AUTO 0.06 K/mm3 (0.00-0.10); IMMATURE GRAN PERCENT AUTO 1 % (0-1); LYMPHOCYTES ABSOLUTE AUTO 1.37 K/mm3 (0.84-5.20); LYMPHOCYTES PERCENT AUTO 14 % (21-46); MONOCYTES ABSOLUTE AUTO 0.66 K/mm3 (0.16-1.47); MONOCYTES PERCENT AUTO 7 % (4-13); Mean Corpuscular HGB 27.2 pg (26.0-34.0); Mean Corpuscular HGB Conc 30.1 g/dL (31.5-36.5); Mean Corpuscular Volume 90 fL (80-100); Mean Platelet Volume 11.9 fL (9.1-12.4); NEUTROPHILS ABSOLUTE AUTO 7.28 K/mm3 (1.96-9.15); NEUTROPHILS PERCENT AUTO 75 % (41-73); Platelet Count 280 K/mm3 (150-400); RDW Coefficient Variation 15.6 % (11.7-14.2); Red Blood Cell Count 4.15 M/mm3 (3.80-5.20); White Blood Cell Count 9.69 K/mm3 (4.00-11.30)
[2020-06-22 04:21] LABS: Bun/Creatinine Ratio 21.2 (12.0-20.0); Calcium, Blood 9.6 mg/dL (8.5-10.1); Creatinine, Blood 1.04 mg/dL (0.40-1.00); Potassium, Blood 3.7 mmol/L (3.5-5.5)
[2020-06-24 04:42] LABS: BASOPHILS ABSOLUTE AUTO 0.01 K/mm3 (0.00-0.23); BASOPHILS PERCENT AUTO 0 % (0-2); EOSINOPHILS ABSOLUTE AUTO 0.13 K/mm3 (0.00-0.68); EOSINOPHILS PERCENT AUTO 2 % (0-6); Hematocrit 38.4 % (33.0-51.0); Hemoglobin 11.7 g/dL (11.5-16.0); IMMATURE GRAN ABSOLUTE AUTO 0.02 K/mm3 (0.00-0.10); IMMATURE GRAN PERCENT AUTO 0 % (0-1); LYMPHOCYTES ABSOLUTE AUTO 0.71 K/mm3 (0.84-5.20); LYMPHOCYTES PERCENT AUTO 10 % (21-46); MONOCYTES ABSOLUTE AUTO 0.56 K/mm3 (0.16-1.47); MONOCYTES PERCENT AUTO 8 % (4-13); Mean Corpuscular HGB 27.6 pg (26.0-34.0); Mean Corpuscular HGB Conc 30.5 g/dL (31.5-36.5); Mean Corpuscular Volume 91 fL (80-100); Mean Platelet Volume 11.2 fL (9.1-12.4); NEUTROPHILS ABSOLUTE AUTO 5.98 K/mm3 (1.96-9.15); NEUTROPHILS PERCENT AUTO 81 % (41-73); Platelet Count 271 K/mm3 (150-400); RDW Coefficient Variation 15.8 % (11.7-14.2); RDW Standard Deviation 52.2 fL (35.1-46.3); Red Blood Cell Count 4.24 M/mm3 (3.80-5.20); White Blood Cell Count 7.41 K/mm3 (4.00-11.30)
[2020-06-24 04:59] LABS: Anion Gap 4 mmol/L (6-16); Blood Urea Nitrogen 14 mg/dL (8-24); Bun/Creatinine Ratio 15.3 (12.0-20.0); CO2, Blood 28 mmol/L (21-32); Calcium, Blood 9.7 mg/dL (8.5-10.1); Chloride, Blood 108 mmol/L (98-108); Creatinine, Blood 0.92 mg/dL (0.40-1.00); Glomerular Filtration Rate >60 (60-); Glucose, Blood 97 mg/dL (70-99); Potassium, Blood 3.4 mmol/L (3.5-5.5); Sodium, Blood 140 mmol/L (136-145)
[2020-06-26 05:47] LABS: BASOPHILS ABSOLUTE AUTO 0.02 K/mm3 (0.00-0.23); BASOPHILS PERCENT AUTO 0 % (0-2); EOSINOPHILS ABSOLUTE AUTO 0.13 K/mm3 (0.00-0.68); EOSINOPHILS PERCENT AUTO 2 % (0-6); Hematocrit 38.1 % (33.0-51.0); Hemoglobin 11.6 g/dL (11.5-16.0); IMMATURE GRAN ABSOLUTE AUTO 0.06 K/mm3 (0.00-0.10); IMMATURE GRAN PERCENT AUTO 1 % (0-1); LYMPHOCYTES ABSOLUTE AUTO 1.08 K/mm3 (0.84-5.20); LYMPHOCYTES PERCENT AUTO 12 % (21-46); MONOCYTES ABSOLUTE AUTO 0.73 K/mm3 (0.16-1.47); MONOCYTES PERCENT AUTO 8 % (4-13); Mean Corpuscular HGB 27.7 pg (26.0-34.0); Mean Corpuscular HGB Conc 30.4 g/dL (31.5-36.5); Mean Corpuscular Volume 91 fL (80-100); Mean Platelet Volume 10.9 fL (9.1-12.4); NEUTROPHILS ABSOLUTE AUTO 6.86 K/mm3 (1.96-9.15); NEUTROPHILS PERCENT AUTO 77 % (41-73); Platelet Count 263 K/mm3 (150-400); RDW Coefficient Variation 15.7 % (11.7-14.2); RDW Standard Deviation 52.5 fL (35.1-46.3); Red Blood Cell Count 4.19 M/mm3 (3.80-5.20); White Blood Cell Count 8.88 K/mm3 (4.00-11.30)
[2020-06-26 06:05] LABS: Anion Gap 2 mmol/L (6-16); Blood Urea Nitrogen 11 mg/dL (8-24); Bun/Creatinine Ratio 13.4 (12.0-20.0); CO2, Blood 29 mmol/L (21-32); Calcium, Blood 9.7 mg/dL (8.5-10.1); Chloride, Blood 109 mmol/L (98-108); Creatinine, Blood 0.82 mg/dL (0.40-1.00); Glomerular Filtration Rate >60 (60-); Glucose, Blood 104 mg/dL (70-99); Potassium, Blood 4.1 mmol/L (3.5-5.5); Sodium, Blood 140 mmol/L (136-145)
[2020-06-26 20:49] LABS: Hematocrit 39.1 % (33.0-51.0); Hemoglobin 12.3 g/dL (11.5-16.0)
[2020-06-30 04:23] LABS: BASOPHILS ABSOLUTE AUTO 0.03 K/mm3 (0.00-0.23); BASOPHILS PERCENT AUTO 0 % (0-2); EOSINOPHILS ABSOLUTE AUTO 0.12 K/mm3 (0.00-0.68); EOSINOPHILS PERCENT AUTO 2 % (0-6); Hematocrit 39.6 % (33.0-51.0); Hemoglobin 12.4 g/dL (11.5-16.0); IMMATURE GRAN ABSOLUTE AUTO 0.04 K/mm3 (0.00-0.10); IMMATURE GRAN PERCENT AUTO 1 % (0-1); LYMPHOCYTES ABSOLUTE AUTO 1.57 K/mm3 (0.84-5.20); LYMPHOCYTES PERCENT AUTO 22 % (21-46); MONOCYTES ABSOLUTE AUTO 0.73 K/mm3 (0.16-1.47); MONOCYTES PERCENT AUTO 10 % (4-13); Mean Corpuscular HGB 27.4 pg (26.0-34.0); Mean Corpuscular HGB Conc 31.3 g/dL (31.5-36.5); Mean Corpuscular Volume 88 fL (80-100); Mean Platelet Volume 10.8 fL (9.1-12.4); NEUTROPHILS ABSOLUTE AUTO 4.75 K/mm3 (1.96-9.15); NEUTROPHILS PERCENT AUTO 66 % (41-73); Platelet Count 225 K/mm3 (150-400); RDW Coefficient Variation 15.3 % (11.7-14.2); RDW Standard Deviation 48.9 fL (35.1-46.3); Red Blood Cell Count 4.52 M/mm3 (3.80-5.20); White Blood Cell Count 7.24 K/mm3 (4.00-11.30)
[2020-06-30 04:42] LABS: Alanine Aminotransfer (ALT/SGP 18 U/L (12-78); Albumin, Blood 2.5 g/dL (3.4-5.0); Albumin/Globulin Ratio 0.6 (0.8-1.8); Alk Phos 116 U/L (50-136); Anion Gap 5 mmol/L (6-16); Aspartate Aminotrans (AST/SGOT 17 U/L (12-37); Bilirubin, Total 0.5 mg/dL (0.1-1.0); Blood Urea Nitrogen 13 mg/dL (8-24); CO2, Blood 31 mmol/L (21-32); Chloride, Blood 104 mmol/L (98-108); Creatinine, Blood 0.81 mg/dL (0.40-1.00); Globulin, Blood 4.3 g/dL (2.2-4.0); Glomerular Filtration Rate >60 (60-); Glucose, Blood 97 mg/dL (70-99); Potassium, Blood 4.1 mmol/L (3.5-5.5); Sodium, Blood 140 mmol/L (136-145); Total Protein, Blood 6.8 g/dL (6.4-8.2)
[2020-07-04 09:01] LABS: Hemoglobin 12.6 g/dL (11.5-16.0)
[2020-07-04 09:18] LABS: Anion Gap 1 mmol/L (6-16); Blood Urea Nitrogen 14 mg/dL (8-24); Bun/Creatinine Ratio 15.5 (12.0-20.0); CO2, Blood 39 mmol/L (21-32); Calcium, Blood 9.9 mg/dL (8.5-10.1); Chloride, Blood 95 mmol/L (98-108); Glomerular Filtration Rate >60 (60-); Glucose, Blood 123 mg/dL (70-99); Potassium, Blood 4.1 mmol/L (3.5-5.5); Sodium, Blood 135 mmol/L (136-145)
[2020-07-07] MEDS ORDERED: Atarax10 MG PO (14:59)
[2020-07-07] MEDS ORDERED: CLOP75 PO (14:59)
== END 2020-07-07 17:00 | DRG 207 ==
LOC: ER 13:59 → ICUW 16:23 → PCU 06-16 19:02 → ICUW 06-20 09:10 → PCU 06-25 11:06 → MEDS 06-30 14:47
PROVIDERS: Emergency Medicine; Family Medicine; Internal Medicine; Internal Medicine Critical Care Medicine; Internal Medicine Pulmonary Disease; Pharmacist; ADMIT Family Medicine
PROC: 0BH17EZ Insertion of Endotracheal Airway into Trachea, Via Natural or Artificial Opening (ICD-10-PCS; principal; 2020-06-07)
PROC: 5A1955Z Respiratory Ventilation, Greater than 96 Consecutive Hours (ICD-10-PCS; 2020-06-07)
PROC: 4A023N8 Measurement of Cardiac Sampling and Pressure, Bilateral, Percutaneous Approach (ICD-10-PCS; 2020-06-07)
PROC: B300ZZZ Plain Radiography of Thoracic Aorta (ICD-10-PCS; 2020-06-07)
PROC: 5A2204Z Restoration of Cardiac Rhythm, Single (ICD-10-PCS; 2020-06-07)
DX: J96.21 Acute and chronic respiratory failure with hypoxia (principal); I46.9 Cardiac arrest, cause unspecified; J69.0 Pneumonitis due to inhalation of food and vomit; I21.A1 Myocardial infarction type 2; G92 Toxic encephalopathy; I49.01 Ventricular fibrillation; N17.9 Acute kidney failure, unspecified; I48.20 Chronic atrial fibrillation, unspecified; Z20.828 Contact with and (suspected) exposure to other viral communicable diseases; I48.91 Unspecified atrial fibrillation; Z79.01 Long term (current) use of anticoagulants; F41.9 Anxiety disorder, unspecified; G89.4 Chronic pain syndrome; J44.9 Chronic obstructive pulmonary disease, unspecified; E11.9 Type 2 diabetes mellitus without complications; I10 Essential (primary) hypertension; E87.6 Hypokalemia; E03.9 Hypothyroidism, unspecified; M32.9 Systemic lupus erythematosus, unspecified; I08.1 Rheumatic disorders of both mitral and tricuspid valves; I25.10 Atherosclerotic heart disease of native coronary artery without angina pectoris; F17.210 Nicotine dependence, cigarettes, uncomplicated; I95.9 Hypotension, unspecified; Z66 Do not resuscitate
CPT/HCPCS: 31500; 31720; 36415; 36569; 36600; 51702; 71045; 71250; 74018; 76937; 80048; 80053; 80069; 80202; 81001; 82330; 82436; 82803; 82947; 83605; 83735; 84100; 84132; 84484; 85014; 85018; 85025; 85027; 85610; 85730; 87040; 87070; 87205; 92950; 93005; 93010; 93306; 93308; 93321; 93460; 94002; 94003; 94640; 94660; 94667; 94762; 94770; 96365-59; 96366-59; 96368; 96375-59; 97110; 97112; 97116; 97161; 97166; 97530; 97535; 99152; 99153; 99285-25; A9270; A9270-GY; C1751; C1760; C1769; C1894; C9113; J0171; J0282; J0696; J1200; J1644; J1650; J1720; J1815; J1940; J1956; J2250; J2405; J2543; J2704; J3010; J3370; J3475; J3480; J7030; J7040; J7050; J7060; J7070; J7120; Q9967; U0002

== ENCOUNTER → 2020-08-07 | Outpatient (CLI) | payer MEDICARE, OTHER ==
[~2020-08-07] MED LIST changes: +Atarax10 MG PO; +CLOP75 PO; +FUROSEMIDE40 MG PO; +Metoprolol Tar100 MG PO
[2020-08-07 20:01] LABS: BASOPHILS ABSOLUTE AUTO 0.02 K/mm3 (0.00-0.23); BASOPHILS PERCENT AUTO 0 % (0-2); EOSINOPHILS ABSOLUTE AUTO 0.17 K/mm3 (0.00-0.68); EOSINOPHILS PERCENT AUTO 2 % (0-6); Hematocrit 38.2 % (33.0-51.0); Hemoglobin 11.6 g/dL (11.5-16.0); IMMATURE GRAN ABSOLUTE AUTO 0.02 K/mm3 (0.00-0.10); IMMATURE GRAN PERCENT AUTO 0 % (0-1); LYMPHOCYTES PERCENT AUTO 28 % (21-46); MONOCYTES ABSOLUTE AUTO 0.84 K/mm3 (0.16-1.47); MONOCYTES PERCENT AUTO 10 % (4-13); Mean Corpuscular HGB Conc 30.4 g/dL (31.5-36.5); Mean Corpuscular Volume 86 fL (80-100); Mean Platelet Volume 11.2 fL (9.1-12.4); NEUTROPHILS ABSOLUTE AUTO 4.78 K/mm3 (1.96-9.15); NEUTROPHILS PERCENT AUTO 59 % (41-73); Platelet Count 203 K/mm3 (150-400); RDW Coefficient Variation 14.1 % (11.7-14.2); RDW Standard Deviation 44.1 fL (35.1-46.3); Red Blood Cell Count 4.46 M/mm3 (3.80-5.20); White Blood Cell Count 8.13 K/mm3 (4.00-11.30)
[2020-08-07 20:29] LABS: Albumin, Blood 3.6 g/dL (3.4-5.0); Albumin/Globulin Ratio 0.8 (0.8-1.8); Alk Phos 102 U/L (50-136); Anion Gap 5 mmol/L (6-16); Aspartate Aminotrans (AST/SGOT 23 U/L (12-37); Bilirubin, Total 0.5 mg/dL (0.1-1.0); Blood Urea Nitrogen 17 mg/dL (8-24); Bun/Creatinine Ratio 21.8 (12.0-20.0); CHOL/HDL RATIO 2.7; CO2, Blood 33 mmol/L (21-32); Calcium, Blood 10.2 mg/dL (8.5-10.1); Chloride, Blood 101 mmol/L (98-108); Cholesterol 197 mg/dL (50-200); Creatinine, Blood 0.78 mg/dL (0.40-1.00); Globulin, Blood 4.3 g/dL (2.2-4.0); Glomerular Filtration Rate >60 (60-); Glucose, Blood 99 mg/dL (70-99); HDL Cholesterol 73 mg/dL (>39); LDL/HDL RATIO 1.4; Low Density Lipoprotein Chol 106 mg/dL (0-110); Potassium, Blood 3.6 mmol/L (3.5-5.5); Sodium, Blood 139 mmol/L (136-145); Total Protein, Blood 7.9 g/dL (6.4-8.2); Triglycerides 92 mg/dL (30-160); Very Low Density Lipoprot Chol 18 mg/dL (6-32)
[2020-08-07 20:37] LABS: Alanine Aminotransfer (ALT/SGP 23 U/L (12-78)
== END | disposition home or self-care (01) ==
LOC: LAB 19:37 → LAB SHORT 19:37
PROVIDERS: Nurse Practitioner
DX: E78.5 Hyperlipidemia, unspecified (principal); E03.9 Hypothyroidism, unspecified; I10 Essential (primary) hypertension
CPT/HCPCS: 80053; 80061; 84443; 85025

== ENCOUNTER 2020-09-25 06:51 | Day surgery (SDC) | payer MEDICARE, OTHER ==
[2020-09-25] MEDS ORDERED: LEVSOD100 PO (07:44)
--- NOTE | 2020-09-25 08:32 | NUR ---
PT AWAKE AND VERBALIZING WELL.
[2020-09-25] MEDS ORDERED: ELIQUIS5 MG PO (08:35)
[2020-09-25 09:16] LABS: Anion Gap 5 mmol/L (6-16); Blood Urea Nitrogen 22 mg/dL (8-24); CO2, Blood 38 mmol/L (21-32); Calcium, Blood 8.8 mg/dL (8.5-10.1); Chloride, Blood 99 mmol/L (98-108); Creatinine, Blood 0.96 mg/dL (0.40-1.00); Glomerular Filtration Rate >60 (60-); Glucose, Blood 120 mg/dL (70-99); Potassium, Blood 2.7 mmol/L (3.5-5.5); Sodium, Blood 142 mmol/L (136-145)
--- NOTE | 2020-09-25 10:47 | NUR ---
PT AND SON VERBALIZED UNDERSTANDING OF WRITTEN AND VERBAL D/C INST. IV REMOVED. PT TAKEN OUT OF THE HRT CENTER VIA W/C.
== END 2020-09-25 22:54 | disposition home or self-care (01) ==
LOC: MHTC 06:51
PROVIDERS: Internal Medicine Cardiovascular Disease
DX: I34.0 Nonrheumatic mitral (valve) insufficiency (principal); I34.1 Nonrheumatic mitral (valve) prolapse; I11.0 Hypertensive heart disease with heart failure; I50.9 Heart failure, unspecified; M79.7 Fibromyalgia; M81.0 Age-related osteoporosis without current pathological fracture; M32.9 Systemic lupus erythematosus, unspecified; I48.20 Chronic atrial fibrillation, unspecified; I25.10 Atherosclerotic heart disease of native coronary artery without angina pectoris; E78.5 Hyperlipidemia, unspecified; E11.9 Type 2 diabetes mellitus without complications; J44.9 Chronic obstructive pulmonary disease, unspecified; E03.9 Hypothyroidism, unspecified; E66.3 Overweight; Z68.33 Body mass index [BMI] 33.0-33.9, adult; Z86.74 Personal history of sudden cardiac arrest; Z79.01 Long term (current) use of anticoagulants; Z79.02 Long term (current) use of antithrombotics/antiplatelets; Z79.899 Other long term (current) drug therapy; Z87.891 Personal history of nicotine dependence; Z88.1 Allergy status to other antibiotic agents; Z88.2 Allergy status to sulfonamides; Z88.8 Allergy status to other drugs, medicaments and biological substances; Z91.041 Radiographic dye allergy status; Z91.013 Allergy to seafood
CPT/HCPCS: 80048; 93312; 93325; A9270; J2704

== ENCOUNTER 2020-11-03 14:13 | Inpatient (IN) | payer MEDICARE, OTHER ==
[~2020-11-03] VITALS: Ht 165.1 cm; Wt 72.5 kg
[~2020-11-03 14:13] MED LIST changes: -FUROSEMIDE40 MG PO; +LEVSOD100 PO
[2020-11-03 15:06] LABS: BASOPHILS ABSOLUTE AUTO 0.02 K/mm3 (0.00-0.23); BASOPHILS PERCENT AUTO 0 % (0-2); EOSINOPHILS PERCENT AUTO 0 % (0-6); Hematocrit 43.3 % (33.0-51.0); Hemoglobin 13.6 g/dL (11.5-16.0); IMMATURE GRAN ABSOLUTE AUTO 0.03 K/mm3 (0.00-0.10); IMMATURE GRAN PERCENT AUTO 0 % (0-1); LYMPHOCYTES PERCENT AUTO 13 % (21-46); MONOCYTES ABSOLUTE AUTO 0.55 K/mm3 (0.16-1.47); MONOCYTES PERCENT AUTO 6 % (4-13); Mean Corpuscular HGB 26.3 pg (26.0-34.0); Mean Corpuscular HGB Conc 31.4 g/dL (31.5-36.5); Mean Corpuscular Volume 84 fL (80-100); NEUTROPHILS ABSOLUTE AUTO 7.76 K/mm3 (1.96-9.15); NEUTROPHILS PERCENT AUTO 81 % (41-73); Platelet Count 148 K/mm3 (150-400); RDW Coefficient Variation 19.9 % (11.7-14.2); RDW Standard Deviation 58.2 fL (35.1-46.3); Red Blood Cell Count 5.18 M/mm3 (3.80-5.20); White Blood Cell Count 9.56 K/mm3 (4.00-11.30)
[2020-11-03 15:19] LABS: Source, Urine Catheter
[2020-11-03 15:25] LABS: Bilirubin, Urine Neg (Neg); Blood, Urine 4+ (Neg); Glucose Qualitative, Urine Neg (Neg); Ketones, Urine Neg (Neg); Leukocyte Esterase, Urine Neg (Neg); Nitrite, Urine Neg (Neg); Protein, Urine 3+ (Neg); Urobilinogen, Urine 1+ (Normal)
[2020-11-03 15:26] LABS: Ethanol (Alcohol), Blood, Med <3 mg/dL
[2020-11-03 15:27] LABS: Alanine Aminotransfer (ALT/SGP 22 U/L (12-78); Albumin, Blood 4.2 g/dL (3.4-5.0); Albumin/Globulin Ratio 1.1 (0.8-1.8); Alk Phos 75 U/L (50-136); Anion Gap 8 mmol/L (6-16); Aspartate Aminotrans (AST/SGOT 43 U/L (12-37); Bilirubin, Total 1.3 mg/dL (0.1-1.0); Blood Urea Nitrogen 28 mg/dL (8-24); Bun/Creatinine Ratio 25.5 (12.0-20.0); CO2, Blood 31 mmol/L (21-32); Calcium, Blood 10.3 mg/dL (8.5-10.1); Chloride, Blood 105 mmol/L (98-108); Globulin, Blood 3.8 g/dL (2.2-4.0); Glomerular Filtration Rate 51 (60-); Glucose, Blood 114 mg/dL (70-99); Potassium, Blood 2.9 mmol/L (3.5-5.5); Sodium, Blood 144 mmol/L (136-145)
[2020-11-03 15:35] LABS: International Normalized Ratio 1.14; Prothrombin Time Results 12.1 Sec (9.7-11.5)
[2020-11-03 15:36] LABS: Appearance, Urine Clear (Clear); Color, Urine Yellow (P-Yellow)
[2020-11-03 15:40] LABS: Bacteria Few /hpf; Squamous Epithelial Cells Few /hpf (Few); Transitional Epithelial Cells Rare /hpf (0-Rare); White Blood Cells, Urine 0-2 /hpf (0-5)
[2020-11-03 15:43] LABS: U Amphetamine Screen Not Detected; U Barbituate Screen Not Detected; U Benzodiazapine Screen Not Detected; U Buprenorphine Screen Not Detected; U Cannabinoids Screen Not Detected; U Cocaine Screen Not Detected; U Methadone Screen Not Detected; U Methamphetamine Screen Not Detected; U Opiates Screen Not Detected; U Oxycodone Screen Not Detected; U Phencyclidine Screen Not Detected; U Propoxyphene Screen Not Detected
[2020-11-03] MEDS ORDERED: PLAVIX75 MG PO (17:15)
[2020-11-03] MEDS ORDERED: FUROSEMIDE40 MG PO (17:15)
[2020-11-03] MEDS ORDERED: ELIQUIS5 MG PO (17:16)
[2020-11-03] MEDS ORDERED: ROXICODONE5 MG PO (17:18)
[2020-11-03] MEDS ORDERED: OXYCONTIN30 MG PO (17:19)
[2020-11-03 18:35] LABS: Free Thyroxine 0.36 ng/dL (0.70-1.60); Magnesium, Blood 2.6 mg/dL (1.6-2.4)
[2020-11-03 18:37] LABS: Thyroid Stimulating Hormone 87.8 uIU/mL (0.360-4.800)
--- NOTE | 2020-11-03 23:04 | NUR ---
PT ARRIVED TO MEDICAL FLOOR FROM ER ON STRETCHER AT 1910. AA0 TO SELF, SURROUNDINGS, AND PLACE. UNABLE TO DESCRIBE EVENTS LEADING TO HOSPITALIZATIONS. DROWSY AND FALLS ASLEEP READILY WHEN NOT BEING SPOKEN TO. AROUSES W/ VERBAL STIMULI. PUREWICK EXTERNAL CATHETER IN PLACE. BED ALARM ON, CALL BUTTON EXPLAINED AND PLACED WITHIN REACH.
--- NOTE | 2020-11-03 23:09 | NUR ---
CALL TO HOSPITALIST / TIMING OF ACTH TEST SPOKE W/ DR. ARMSTRONG RE: ACTH TEST. PER LAB, THIS TEST IS TYPICALLY DONE IN AM AT 0730. CONFIRMED W/ DR. ARMSTRONG IF IT IS OK TO WAIT. AGREED. ACTH WILL BE DRAWN IN THE AM.
--- NOTE | 2020-11-04 01:33 | NUR ---
CALL TO HOSPITALIST AT 0050 / 3 SECOND PAUSES IN RHYTHM ACCOMPANIED BY HR DROP TO 30'S FOR 10 SECONDS. BASE RATE/RHYTHM AFIB W/PVC'S 57. PT ASYMPTOMATIC DURING PAUSES, REMAINS ASLEEP. DR. WHALEY ORDERED ATROPINE PUSH AND T/F PT TO PCU.
--- NOTE | 2020-11-04 01:36 | NUR ---
REPORT CALLED TO RADIO INTERFERENCE SUPERVISORURVASHI BLACKWELL. PT T/F TO [facility] 12 AT 0115.
--- NOTE | 2020-11-04 03:05 | NUR ---
ASSUMED CARE OF PATIENT AT APPROXIMATELY 0140 FORM MEDICAL FLOOR ROOM 331. PATIENT ALERT AND ORIENTED X4; FALLS ASLEEP MID SENTENCE AT TIMES; PATIENT REPORTS SHE HASNT SLEEP MUCH TONIGHT. PUREWICK IN PLACE. VSS. HEART RATE DROPS TO 30'S AT TIMES; PATIENT HAD A 3.3 SECOND PAUSE ONCE SINCE ARRIVAL TO PCU. SB ON TELE; OXYGEN SATURATION ABOVE 90% ON 2LPM VIA NC.
[2020-11-04 04:48] LABS: BASOPHILS ABSOLUTE AUTO 0.02 K/mm3 (0.00-0.23); BASOPHILS PERCENT AUTO 0 % (0-2); EOSINOPHILS ABSOLUTE AUTO 0.02 K/mm3 (0.00-0.68); EOSINOPHILS PERCENT AUTO 0 % (0-6); Hematocrit 40.6 % (33.0-51.0); Hemoglobin 12.6 g/dL (11.5-16.0); IMMATURE GRAN ABSOLUTE AUTO 0.02 K/mm3 (0.00-0.10); IMMATURE GRAN PERCENT AUTO 0 % (0-1); LYMPHOCYTES PERCENT AUTO 18 % (21-46); MONOCYTES ABSOLUTE AUTO 0.51 K/mm3 (0.16-1.47); MONOCYTES PERCENT AUTO 6 % (4-13); Mean Corpuscular HGB 26.1 pg (26.0-34.0); Mean Corpuscular Volume 84 fL (80-100); NEUTROPHILS ABSOLUTE AUTO 6.15 K/mm3 (1.96-9.15); NEUTROPHILS PERCENT AUTO 75 % (41-73); Platelet Count 129 K/mm3 (150-400); RDW Coefficient Variation 19.7 % (11.7-14.2); RDW Standard Deviation 58.5 fL (35.1-46.3); Red Blood Cell Count 4.83 M/mm3 (3.80-5.20); White Blood Cell Count 8.22 K/mm3 (4.00-11.30)
[2020-11-04 05:08] LABS: Albumin, Blood 3.7 g/dL (3.4-5.0); Albumin/Globulin Ratio 1.1 (0.8-1.8); Bilirubin, Total 1.4 mg/dL (0.1-1.0); Bun/Creatinine Ratio 28.2 (12.0-20.0); Calcium, Blood 9.6 mg/dL (8.5-10.1); Creatinine, Blood 1.03 mg/dL (0.40-1.00); Globulin, Blood 3.3 g/dL (2.2-4.0)
--- NOTE | 2020-11-04 06:28 | NUR ---
PATIENT HAD MULTIPLE PAUSES AFTER ARRIVAL TO UNIT. DR. WHALEY CALLED TO REQUEST CARDIO CONSULT; ORDERS RECIEVED. VSS. PATIENT SLEPT ABOUT FOUR HOURS SINCE ARRIVAL. WILL CONTINUE TO MONITOR AND ASSESS UNTIL END OF SHIFT.
--- NOTE | 2020-11-04 13:43 | NUR ---
PT HAD 13 BEATS RUN OF VTACH AT 1120 THIS AM, PT WAS ASYMPTOMATIC DENIES CHEST PAIN/PALPITATIONS/PRESSURE. HRR AFIB WITH PVC'S AND P PAUSES. CARDIOLOGY CONSULTED NO INTERVENTION AT THIS TIME, PT TO GET HYPOTHYROIDISM TREATED. PT STARTED WITH LEVOTHYROXINE AND CYTOMEL TODAY. PT IS ALERT TO SELF, PLACE AND SITUATION BUT GETS CONFUSED OFTEN, HAS FLIGHT OF IDEAS AND SOME BOTH VISUAL AND AUDITORY HALLUCINATIONS, PT WAS POINTING AT THE WINDOW SAYING THERE'S A CAT AND SHE CAN HEAR SOME NOISES FROM THE [place] OUTSIDE. PT IS VERY ARGUMENTATIVE AND IRRITABLE. PT WAS ABLE TO WORK WITH THERAPY THIS AM WAS UP IN THE CHAIR FOR LUNCH TIME 1PA TOLERATED WELL. PT REMAINS ON 2L OF O2, SATS ABOVE 95%, BP SYSTOLIC 140-170, AFEBRILE. PT CURRENTLY RECEIVING BED BATH AT THIS TIME. BED ALARM ON FOR SAFETY. NO ISSUES AT THIS TIME, WILL CONTINUE TO MONITOR UNTIL END OF SHIFT.
--- NOTE | 2020-11-04 17:18 | NUR ---
PT SUMMARY: SEE PREVIOUS NOTES: NO ACUTE CHANGE FOR THE SHIFT, PT REMAINS ARGUMENTATIVE AND IRRITABLE, ATTEMPTING TO GET OUT OF BED, BED ALARM AND CHAIR ALARM ON FOR SAFETY. PT CURRENTLY UP IN THE CHAIR READY FOR DINNER. CALL LIGHTS IN REACH. WILL MONITOR TIL THE END OF SHIFT
--- NOTE | 2020-11-04 22:17 | NUR ---
ASSUMED CARE OF PATIENT AT APPROXIMATELY 1900 FROM LOUISE Ayon RN. PATIENT CONFUSED, REFUSING CARE, ATTEMPTING TO PULL OUT IV, DEFENSIVE, FLIGHT OF IDEAS, THREATNING TO HIT STAFF ON THE HEAD WITH CALL LIGHT "BECAUSE THOSE BASTARDS WON'T LEAVE ME ALONE"; REFUSED BLOOD SUGAR INTIALLY AND STATED "GET SOMEONE ELSE'S". PATIENT ATTEMPTS TO GET OUT OF BED INDEPENDENTLY; FALL RISK. PATIENT MOVES ARM AROUND WHILE GETTING A BLOOD PRESSURE SHOUTING "YOU ARE SQUEEZING MY ARM OFF". PATIENT DENIES PAIN, DIZZINESS OR NAUSEA. PIV S/L. AFIB ON TELE; OXYGEN SATURATION ABOVE 90% ON 2LPM VIA NC. PATIENT CURRENTLY RESTING IN BED; CALL LIGHT IN REACH; BED IN LOWEST POSISTION; BED ALARM ON
--- NOTE | 2020-11-05 04:14 | NUR ---
REFUSED LABS; PATIENT STATES LAB CAN DRAW THEN ASKS 10 QUESTIONS ABOUT WHAT THE LAB IS DOING, WHERE THE BLOOD IS GOING, WHO ORDERED THE LABS AND THEN JERKED HER ARMED TWICE; ONCE WITH NEEDLE IN ARM; REFUSED LABS. PATIENT ALSO WOULDNT STAY STILL FOR A BLOOD PRESSURE THIS MORNING. PATIENT HAS BEEN TAKING OXYGEN OFF ALL NIGHT; REPORTS "IT WONT STAY ON"; PUT BACK ON MULTIPLE TIMES BY STAFF.
--- NOTE | 2020-11-05 10:47 | NUR ---
Assume Care Received report from Jeannine PCU-RN. Patient arrived to room 335 approx. 1040 from PCU 12. Belongings were with patient, on 2L O2. 2 moderate assist with transfer. Denies pain, nausea, vomiting, diarrhea. Tele: Afib PVC's 96. Bed in lowest position, bed alarm on, call light near. WCTM.
--- NOTE | 2020-11-05 10:56 | NUR ---
PT STATUS CHANGED TO MEDICAL WITH TELE. REPORT GIVEN TO YOSEF LANDIN, PT TRANSFERRED TO RM 335. NO ACUTE CHANGE FOR THE SHIFT. VITALS HRR REMAINED AFIB WITH PVC'S AT 90'S, NO REPORTED PAUSES PER TELEMETRY, BP SYSTOLIC 120'S, SATS ABOVE 92% ON 2L OF O2, AFEBRILE. PT REMAINED ALTERED IN MENTAL STATUS, ARGUMENTATIVE WITH FLIGHT OF IDEAS, REFUSES LAB BEING DRAWN THIS AM ATTEMPTED TWICE ALREADY DR CHAVIS MADE AWARE. PT TOOK MEDS WITHOUT DIFFICULTY BUT TAKES AWHILE TO TAKE. NO OTHER ISSUES ENCOUNTERED, PT ACCOMPANIED BY PCT FOR TRANSFER, ALL BELONGINGS SENT WITH PT LIFE VEST IN A HOSPITAL BAG ALONG WITH MEDS AND CHART.
[2020-11-05 11:43] LABS: BASOPHILS ABSOLUTE AUTO 0.02 K/mm3 (0.00-0.23); BASOPHILS PERCENT AUTO 0 % (0-2); EOSINOPHILS ABSOLUTE AUTO 0.02 K/mm3 (0.00-0.68); EOSINOPHILS PERCENT AUTO 0 % (0-6); Hematocrit 42.9 % (33.0-51.0); Hemoglobin 13.7 g/dL (11.5-16.0); IMMATURE GRAN ABSOLUTE AUTO 0.05 K/mm3 (0.00-0.10); IMMATURE GRAN PERCENT AUTO 1 % (0-1); LYMPHOCYTES ABSOLUTE AUTO 1.58 K/mm3 (0.84-5.20); LYMPHOCYTES PERCENT AUTO 15 % (21-46); MONOCYTES ABSOLUTE AUTO 0.55 K/mm3 (0.16-1.47); MONOCYTES PERCENT AUTO 5 % (4-13); Mean Corpuscular HGB 27.1 pg (26.0-34.0); Mean Corpuscular HGB Conc 31.9 g/dL (31.5-36.5); Mean Corpuscular Volume 85 fL (80-100); Mean Platelet Volume 12.2 fL (9.1-12.4); NEUTROPHILS ABSOLUTE AUTO 8.43 K/mm3 (1.96-9.15); NEUTROPHILS PERCENT AUTO 79 % (41-73); Platelet Count 160 K/mm3 (150-400); RDW Coefficient Variation 20.7 % (11.7-14.2); Red Blood Cell Count 5.05 M/mm3 (3.80-5.20); White Blood Cell Count 10.65 K/mm3 (4.00-11.30)
[2020-11-05 11:59] LABS: Bilirubin, Total 1.2 mg/dL (0.1-1.0); Calcium, Blood 10.2 mg/dL (8.5-10.1); Potassium, Blood 2.8 mmol/L (3.5-5.5)
--- NOTE | 2020-11-05 13:58 | NUR ---
HYPERTENSION SBP 190-200's. Received T.O. from Dr. Capps for Hydralazine PO 25 mg Q4 prn for SBP > 160. Emar updated.
--- NOTE | 2020-11-05 16:08 | NUR ---
HYPERTENSION Blood pressure remains elevated. Received additional T.O. from Dr. Capps for Clonidine 0.1 mg PO Q6 PRN for SBP greater than 160. EMAR updated.
--- NOTE | 2020-11-05 16:48 | NUR ---
Potassium Reordered potassium so this RN can pull from pyxis. Prior dose wasted because patient refused.
--- NOTE | 2020-11-05 17:55 | NUR ---
Shift Summary A/O to self and family. Patient continues to hallucinate in the room. Refused PO potassium and only took half ordered dose of Xarelto. Dr. Capps informed and received T.O. to change 40 mEq PO potassium to IV 20 mEq. Also received T.O. for IV Hydralazine d/t patient refusing to take oral meds. Patient is impulsive and attempts to climb out of bed. Does not call appropriately using call light. Pulling nasal cannula off and refusing to put it back on. Unable to reason with, argumentative. Threatens to bite staff if given PO meds. 1-2p assist to BSC and to chair, though patient refuses to listen to simple instruction. Refused lunch and dinner tonight. Blood pressure has been high, Dr. Capps is aware. Will continue to treat with PRN antihypertensives per EMAR. Tele: Afib 102. Call light near by, bed in lowest position x 3 rails, bed/chair alarm on for safety. [facility].
--- NOTE | 2020-11-05 21:10 | NUR ---
PT IS LETHARGIC. WAKES UP TO VERBAL STIMULI, MAKES EYE CONTACT. SPEECH IS DIFFICULT TO UNDERSTAND AND SEEMS TO BE NONSENSICAL. FLUIDS OFFERED, STRAW PLACED TO LIPS AND PT FELL BACK TO SLEEP WITHOUT TAKING A SIP. PT UNABLE TO SWALLOW HS PILLS SAFELY AT THIS TIME DUE TO LETHARGY. IV K+ COMPLETED INFUSING PER ORDERS. AFIB 94 PER TELE DATA ENTRY ASSOCIATE. 02 02% ON 3L VIA NC. LSCTA. HR IRREGULAR.
--- NOTE | 2020-11-05 22:09 | NUR ---
CALL TO HOSPITALIST DR. POOL RE: LETHARGY AND INABILITY TO SWALLOW PILLS DR. POOL STATES TO HOLD SEDATING MEDS. WILL ADMINISTER IV HYDRALAZINE FOR ELEVATED SBP. CONT TO MONITOR PT.
--- NOTE | 2020-11-06 05:31 | NUR ---
CALL TO HOSPITALIST DR. WHALEY / CHRISTAL AND KUSHAL REFUSED. PT LETHARGIC THIS AM, OPENS EYES TO VERBAL STIMULI, BUT WILL NOT OPEN MOUTH TO ACCEPT THYROID MEDS. RECIEVED OT ORDER TO ADMINISTER SYNTHROID 50MCG IV THIS AM.
--- NOTE | 2020-11-06 06:07 | NUR ---
SHIFT SUMMARY: SBP 126 THIS AM. AFEB. 02 96% ON 3L VIA NC. RESPS EVEN, NON-LABORED. AFIB W/ PVC'S, 96. NO BRADYCARDIC EPISODES OR PAUSES REPORTED OVERNIGHT. RESPONDS TO VERBAL STIMULI, OPENS EYES BUT WILL IMMEDIATELY CLOSE THEM. SEEMS CONFUSED WHEN PILLS ARE OFFERED AND WILL NOT OPEN MOUTH TO TAKE PILLS OR WATER BUT WHEN PT NEEDS TO VOID SHE BECOMES TOTALLY ALERT, SPEECH CONT TO BE NON-SENSICAL, BUT PT WILL CLEARLY RESPOND AFFIRMATIVELY TO STAFF SUGGESTING WHAT IT IS SHE MAY NEED. CURRENTLY PT IS INTERACTING PLEASANTLY W/STAFF. NO AGITATION OR AGGRESSION. SEEMED TO HAVE SLEPT WELL. NO ACUTE INCIDENTS OVERNIGHT. WCTM.
--- NOTE | 2020-11-06 18:28 | NUR ---
SHIFT SUMMARY NO ACUTE CHANGES THIS SHIFT. SHE WAS ALERT ONCE SHE HAS TIME TO WAKE UP A BIT. SHE PARTICIPATED WITH PT AND OT. SHE WAS PLEASANT AND COOPERATIVE WITH CARE. BED/ CHAIR ALARM SET. SHE IS A ONE PERSON ASSIT TO THE BED/BEDSIDE COMMODE. CURRENTLY SHE UP IN THE CHAIR. CALL LIGHT WITHIN REACH. WILL CONT TO MONITOR AND REPORT OFF TO [facility] PHYSICIAN.
--- NOTE | 2020-11-06 19:13 | NUR ---
Ayaka and I have a great rapport built during her previous hospitalization. She seemed confused at times today, but she was quite talkative. She is fighting with her sons as they "are telling me what to do and not do." She is fiercely independant and wants to do things her way. She does not appear to completely understand her multiple illnesses and does not appear capable at this time. She seemed tired and fell asleep, often mid-sentance. But she would awaken when I got up to leave and begged me to stay longer. We had a long visit and she appeared to enjoy being heard and affirmed. She asked for prayer and I happily complied. I will continue to provide ministry to Ayaka as schedule permits.
--- NOTE | 2020-11-07 04:32 | NUR ---
SHIFT SUMMARY ADMITTED FOR AMS. FOUND ON THE GROUND. FULL CODE. PLAN IS TO DC WITH HH AND CAREGIVERS ALREADY IN PLACE. SHE REFUSES LIFEVEST AT BEDSIDE. FOUND TO BE HYPOTHYROID. AT TIMES REFUSING MEDICATION AND CARE. SHE IS ON 3 LPM O2, 2 LPM O2 IS BASELINE. SHE TAKES ELIQUIS AT HOME. TELEMETRY: AFIB @ 89 BPM.
[2020-11-07 05:28] LABS: Hematocrit 46.9 % (33.0-51.0); Hemoglobin 14.7 g/dL (11.5-16.0); Mean Corpuscular HGB 26.6 pg (26.0-34.0); Mean Corpuscular HGB Conc 31.3 g/dL (31.5-36.5); Mean Corpuscular Volume 85 fL (80-100); Platelet Count 156 K/mm3 (150-400); RDW Coefficient Variation 21.2 % (11.7-14.2); RDW Standard Deviation 62.4 fL (35.1-46.3); Red Blood Cell Count 5.52 M/mm3 (3.80-5.20); White Blood Cell Count 9.45 K/mm3 (4.00-11.30)
[2020-11-07 06:00] LABS: Bun/Creatinine Ratio 27.1 (12.0-20.0); Calcium, Blood 10.1 mg/dL (8.5-10.1); Creatinine, Blood 1.18 mg/dL (0.40-1.00)
--- NOTE | 2020-11-07 15:21 | NUR ---
PATIENT PULLED OUT BRAND NEW IV JUST PLACED. EDUCATED HER ABOUT THE REASONS SHE NEEDS TO HAVE IV ACCESS (DIABETIC, TELEMETRY, FULL CODE), BUT IS REFUSING TO HAVE ANOTHER IV STARTED AT THIS TIME.
--- NOTE | 2020-11-07 18:30 | NUR ---
SHIFT SUMMARY: HAD 3.1 SECOND PAUSE ON TELEMETRY THIS MORNING; DR. SANTANA NOTIFIED IN PERSON DURING ROUNDS, NO NEW ORDERS. PT IS A&O X 1, CONFUSED, IRRITABLE AND DEFENSIVE AT TIMES. DOES NOT FOLLOW INSTRUCTIONS WELL. TELEMETRY RHYTHM IS AFIB, RATE 80'S WITH OCC PVC'S. CURRENTLY HAS NO IV; PREVIOUS IV LEAKING AND WAS REMOVED. NEW IV PLACED, BUT PT PULLED 10 MINUTES LATER AND SHE REFUSED ANOTHER. GOOD APPETITE. TONIGHT, INSISTING THAT SHE'S LEAVING, WANTED ASSISTANCE CALLING A RIDE, BECAME AGITATED; ZYPREXA GIVEN. SPOKE TO PATIENT'S SON PERLITA ON THE PHONE THIS EVENING, GAVE HIM UPDATE ON HER CONDITION, AGREED THAT SHE SHOULD GO TO [facility] OR [facility] D/T HER CONFUSION AND THE NEED FOR SOMEONE TO MONITOR HER MEDICATIONS.
--- NOTE | 2020-11-08 04:21 | NUR ---
SHIFT SUMMARY ADMITTED FOR AMS. FOUND DOWN ON GROUND BY HER CAREGIVER. FULL CODE. PT'S SON WOULD LIKE TO DISCUSS CHANGING CODE STATUS AND PLACEMENT. PT IS CONFUSED AND IMPULSIVE. SHE MAY HAVE MISMANAGED/OVERUSED HOME NARCOTIC PRESCRIPTIONS. FOUND TO BE HYPOTHYROID. SHE TAKES ELIQUIS AT HOME. TELEMETRY: AFIB @ 95 BPM. PT IS REFUSING IV PLACEMENT, SHE REFUSES CARE/MEDICATION AT TIMES.
[2020-11-08 05:52] LABS: Calcium, Blood 10.1 mg/dL (8.5-10.1); Creatinine, Blood 1.11 mg/dL (0.40-1.00); Magnesium, Blood 2.2 mg/dL (1.6-2.4); Potassium, Blood 3.6 mmol/L (3.5-5.5)
--- NOTE | 2020-11-08 18:12 | NUR ---
SHIFT SUMMARY PT HAS BEEN IN CHAIR THROUGH THE DAY. WHEN ATTEMPTING TO GET HER IN THE BED FOR A NAP WHEN SHE FALLS ASLEEP IN THE CHAIR SHE INSISTS IT BELONGS TO SOMEONE ELS[facility] BUT DOES OCCASIONALLY SET OFF CHAIR ALARM AND IS ABLE TO AMBULATE. WALKED INTO HALLWAY USING FWW WITH STAFF AND TIRED EASILY BUT WAS ABLE TO GET BACK TO HER ROOM. SON AT BEDSIDE FOR A SHORT TIME THIS AFFTERNOON AND PT DIDN'T RECOGNIZE HIM. ASKED WHO HE WAS AND NEEDED TO BE CONVINCED IT WAS HER SON. CAN BE IRRITABLE AT TIMES. CAN BE COOPERATIVE AT TIMES. REFUSED TO HAVE BLOOD GLUCOSE CHECKED THIS MORNING. CHEMBGS DCD. O2 ON WHILE IN CHAIR. NO RESP DISTRESS NOTED. DR. THOMAS IN TO SEE TODAY. GUARDIANSHIP RECOMMENDATION LETTER IN CHAIR AND MD SPOKE WITH SON. SON PLANNING TO PERSUE GUARDIANSHIP.
--- NOTE | 2020-11-08 18:55 | NUR ---
Ayaka seemed more confused today. I met with her as she ate lunch. She dropped or spilled much of it and said she didn't like it anyway. She remembers me, but asked if we were going to move her into the "castle." She saw things on the floor that weren't there and just seemed irritable in general. Son, Fabiana arrived and visit ended. I will remain available.
--- NOTE | 2020-11-09 06:56 | NUR ---
SHIFT SUMMARY PT IS A 75 Y/O FEMALE, ADMITTED FOR AMS. PT IS A&O X SELF ONLY, WITH NONSENSICAL SPEECH, PARANOID DELUSIONS AND AUDIO/VISUAL HALLUCINATIONS. PT CAN BE RESISTANT TO CARE AND STAFF AT TIMES. SHE IS UP SBA TO THE BATHROOM. VITAL SIGNS STABLE. NO C/O ACUTE PAIN, NAUSEA OR SOB. NO ACUTE CHANGES IN PT CONDITION NOTED DURING THE NIGHT. WILL CONTINUE TO MONITOR AND TREAT PER EMAR UNTIL HAND OFF TO DAY SHIFT RN.
--- NOTE | 2020-11-09 18:02 | NUR ---
Dionysia appeared weak today. She was also confused and had trouble following with conversation. She would become distracted by something on TV or the floor mid-sentance. She held my hand, and we had a disjointed conversation. We enjoy each other's company and she seems like prayer. Footwear Sales Representative services will remain available.
--- NOTE | 2020-11-09 19:23 | NUR ---
SHIFT SUMMARY PT REPORTED 2 SMALL BABIES HAD BEEN ON HER BED THIS MORNING BUT HAD BEEN TAKEN. KNEW THE YEAR BUT NOT WHERE SHE WAS. DID RECOGNIZE HER SON WHEN HE CAME TO VISIT TODAY. HAS BEEN SLEEPING IN HER CHAIR MOST OF THE MORNING AND PART OF AFTERNOON REFUSING TO LAY DOWN WHEN ASKED. AFTER SON LEFT THIS AFTERNOON, PT CAME OUT OF ROOM SIMILAR TO YESTERDAY AND SAID SHE NEEDED TO CHECK HER HOUSE OUT. WALKING IN HALLWAY WITH STAFF AND FWW TRYING TO SEE WHERE SHE WAS SAYING SHE WAS IN A HOUSE AND WHY WERE SO MANY PEOPLE HERE. PT WAS CONVINCED TO GO BACK TO HER ROOM FOR A PIECE OF CAKE. HAS BEEN UP AND DOWN EVER SINCE.
--- NOTE | 2020-11-10 04:29 | NUR ---
GRINDER MACHINE SETTER SUMMARY PT WAS VERY CONFUSED THIS SHIFT HAVING VISUAL HALLUCINATIONS THROUGH OUT THE NIGHT. THE PT WAS VERY UNCOOPERATIVE W CARE ARGUING WITH STAFF. PT REMAINED ON 2L NC AND DENIED ANY SOB. PT IS CURRENLY SLEEPING W CALL LIGHT WITHIN REACH. WCTM.
--- NOTE | 2020-11-10 06:16 | NUR ---
PT LETHARGIC PT IS AROUSABLE BUT LETHARGIC THIS AM, UNABLE TO AWAKE ENOUGH TO TAKER PO SYNTHROID. PROVIDER WAS CONTACTED AND SHE SAID TO HOLD AM MEDS UNTIL PT IS MORE AWAKE.
--- NOTE | 2020-11-10 19:26 | NUR ---
SHIFT SUMMARY- PT SLEPT FOR MUCH OF THIS SHIFT. SHE WAS ALERT AND COOPERATIVE FOR MOST OF THIS SHIFT. SHE IS EATING AND DRINKING WELL. SHE IS CONFUSED AND OFTEN REPORTS SEEING THINGS THAT ARE NOT THERE, SUCH A MAN SMOKING IN THE HALLWAY. THIS EVENING SHE GOT UP AND AMBULATED DOWN THE JUAN. SHE DID NOT BELIEVE THE EXECUTIVE RELATIONS SPECIALIST ABOUT WHICH ROOM WAS HERS. SHE IS CURRENTLY RESTING IN BED HER CALL LIGHT IS WITIN REACH.
--- NOTE | 2020-11-10 22:06 | NUR ---
PATIENT OUT OF BED ACTIVATING BED ALARM X 2. NOT ABLE TO IMMEDIATELY REORIENT. INCREASED AGIATION NOTED. PATIENT BACK IN BED. ALARM ACTIVATED. CALL LIGHT IN REACH.
--- NOTE | 2020-11-11 03:33 | NUR ---
BED EXIT ATTEMPT ACTIVATING BED ALARM. PATIENT CONFUSED AND AGITATED. REPORTS SHE WANTS TO GO UPSTAIRS TO BR, HEARING HER SON UPSTAIRS. PATIENT NOT ABLE TO FOLLOW DIRECTIONS AT THIS TIME. BACK IN BED AND ALARM ACTIVATED.
--- NOTE | 2020-11-11 03:41 | NUR ---
SHIFT SUMMARY PATIENT INCREASED CONFUSION AND AGITATION. MULTIPLE BED EXITS ACTIVATING ALARM. PATIENT NOT ABLE TO FOLLOW DIRECTIONS AT THIS TIME. REPORTS HEARING HER SON UPSTAIRS AND WANTS TO USE UPSTAIRS BR. PO ZYPREXIA GIVEN FOR AGIATION PER EMAR. NO IV ACCESS. REFUSES TO WEAR OXYGEN. VSS/AFEBRILE. DENIES PAIN, SOB, AND N/V. CALL LIGHT IN REACH. BED IN LOWEST POSITION AND ALARM ACTIVATED. WILL CONTINUE TO MONITOR UNTIL DAY SHIFT NURSE ASSUMES CARE.
--- NOTE | 2020-11-11 05:01 | NUR ---
PATIENT COMBATIVE AND AGITATED WITH BED EXIT ATTEMPT. NOT FOLLOWING DIRECTIONS TO GET BACK INTO BED AND UNABLE TO REORIENT. REPORTS SHE WANTS TO SEE SON UPSTAIRS. PATIENT PLACED BACK INTO BED AND ALARM ACTIVATED.
--- NOTE | 2020-11-11 18:42 | NUR ---
SHIFT SUMMARY PT IS ALERT TO SELF. PT HAS BEEN CONFUSED FOR MOST OF SHIFT. THE ARIEL VEST WAS DC AT 0746 THIS MORING. PT HAS BEEN SETTING OF CHAIR AND BED ALARM THROUGHOUT SHIFT. IT IS USUALLY EASY TO REDIRECT PT BACK TO BED OR CHAIR. PT REFUSED MEDICATION IN THE MORNING AND WAS TREATED WITH HYDRALAZINE IN AFTERNOON DUE TO ELEVATED BP. PT REFUSED SHOWER. PT HAS HAD VISUAL HALLUCINATIONS DURING SHIFT. PT CURENTLY IN BED WATCHING TV. CALL LIGHT W/IN REACH. BED ALARM ON.
--- NOTE | 2020-11-12 03:42 | NUR ---
SHIFT SUMMARY PATIENT STARTED SHIFT COOPERATIVE WITH CARE, ASSESSMENT AND MEDICATION ADMINISTRATION. MILD AGITATION A FEW HOURS LATER. REFUSING HELP TRANSFERING AND COMBATIVE WHICH RESOLVES QUICKLY. VISUAL HALLUCINATIONS T/O SHIFT. REPORTED BACK PAIN AND OXCONDONE 2.5 MG GIVEN PER EMAR. ZYPREXA 5 MG GIVEN FOR AGITATION. NO IV ACCESS. DENIES SOB AND N/V. AFEBRILE. CALL LIGHT IN REACH. BED IN LOWEST POSITION AND ALARM ACTIVATED. WILL CONTINUE TO MONITOR UNTIL DAY SHIFT NURSE ASSUMES CARE.
--- NOTE | 2020-11-12 17:31 | NUR ---
SHIFT SUMMARY. PT MORE LETHARGIC TODAY WHEN COMPARED TO YESTERDAY, SLEEPING INTERMITTENTLY THROUGHOUT SHIFT, AROUSELY EASILY WITH VERBAL STIMULI AND SPONTANEOUSLY. PT CONTINUES WITH CONFUSION, AND VISUAL HALLUCINATIONS OF BABIES AND CATS MOSTLY AND PICKS AT CLOTHES AND OTHER OBJECTS. PT DENIES PAIN, SOB, N/V. SPO2 99% ON RA. NO NEW CHANGES OR CONCERNS.
--- NOTE | 2020-11-13 03:46 | NUR ---
SHIFT SUMMARY PATIENT HAD NO ACUTE CHANGES OBSERVED. LETHARGIC AT SHIFT CHANGE SLEEPING ON/OFF T/O SHIFT. HYPERTENSIVE. LESS AGITATION OBSERVED THIS SHIFT. TAKES MEDICATION WHOLE WITH WATER. AXOX 2 WITH VISUAL HALLUCINATIONS. NO IV ACCESS. DENIES PAIN, SOB, AND N/V. NO BED EXITS ATTEMPTS. SLOWLY REDIRECTS WHEN APPROPRIATE. CALL LIGHT IN REACH. BED IN LOWEST POSITION AND ALARM ACTIVATED. WILL CONTINUE TO MONITOR UNTIL DAY SHIFT NURSE ASSUMES CARE.
--- NOTE | 2020-11-13 18:29 | NUR ---
SHE SLEPT OFF AND ON ALL DAY. SHE ATE 70% OF BREAKFAST BUT ATE VERY LITTLE OF HER LUNCH. RIGHT NOW SHE IS UP IN THE CHAIR WITH HER DINNER IN FRON OF HER BUT HAS FALLEN ASLEEP AGAIN. SHE HAS REMAINED VERY CONFUSED ALL SHIFT. SHE MUMBLES AND IS IRRITABLE A LOT. SHE SPEAKS NONSENSICALLY AND HAS OBVIOUS VISUAL HALLUCINATIONS. SHE DID NOT VOID TODAY UNTIL HER THIRD TRY AT 1745. SHE VOIDED 720 MLS CONCENTRATED ROSLYN URINE. ABOUT AN HOR OR SO BEFORE, SHE BLADDER SCANNED AT 854 MLS. SHE COULD NOT VOID AT THAT TIME. I GOT A STRAIGHT CATH ORDER FROM . I WAS READY TO CATH HER WHEN SHE WANTED TO GET UP AGAIN TO PE. SHE WAS SUCCESSFUL, SO I DID NOT STRAIGHT CATH HER. SHE TALKED ON THE PHONE ONE TIME TODAY TO HER SON HUAN.
--- NOTE | 2020-11-14 04:27 | NUR ---
SHIFT SUMMARY ADMITTED FOR AMS. FULL CODE. PLAN IS FOR GUARDIANSHIP/PLACEMENT. PT IS CONFUSED AND HALLUCINATES. DR THOMAS IS PSYCHIATRY CONSULT. SHE HAS A HX OF FALLS. SHE HAS A HX OF REFUSING MEDICATIONS AND INTERVENTIONS. THIS SHIFT SHE WAS COOPERATIVE WITH CARE AND SLEPT THROUGHOUT SHIFT
--- NOTE | 2020-11-14 10:25 | NUR ---
SHE SLEPT MOST OF THE MORNING IN HER CHAIR. SHE ATE A LITTLE BIT. WE TRY TO HELP HER EAT AND DRINK BUT SHE SAYS NO TO US & CLOSES HER LIPS AND EYES. SHE HAS REFUSED HER LAB DRAW ATLEAST 2 TIMES TODAY. LAB WILL CHECK BACK. SHE SWALLOWED 2 OF 4 PILLS. WILL TRY AGAIN. SHE SPEAKS NONSENSICAL AND IS VERY CONFUSED. SHE IS IN BED NOW AFTER REFUSING OT OTHER THAN TO STAND AND TRANSFER TO THE BED. NO VOID YET THIS SHIFT.
--- NOTE | 2020-11-14 17:21 | NUR ---
Ayaka was easily irritated when I had trouble understanding her speech. she appeared to recognize me but began telling me that "they lied to get me here." She believes her sons are "out to get" her. She appears quite frail, having trouble adjusting herself in bed. When she wasn't irritated, she was quite pleasant. Provided prayer and companionship. It worries ehr that she does not know what is going to happen to her now. I will remain available.
--- NOTE | 2020-11-14 18:33 | NUR ---
SHE CONTINUES TO SLEEP MOST OF THE DAY. HER SON VISITED HER. SHE CONVERSED WITH HIM BUT IT WAS NONSENSICAL. HE BROUGHT HER A TALL WATER. SHE LIKES IT. SHE VOIDED ONCE, 625 MLS CONCENTRATED FOUL SMELLING ROSLYN URINE. SHE DOESN'T DRINK ENOUGH OR EAT ENOUGH OR VOID OFTEN ENOUGH BUT WE ARE USUALLY UNSUCCESSFUL WITH OUR ENCOURAGEMENT. SHE WILL ONLY DO SOMETHING IF SHE WANTS TO AND WHEN SHE WANTS TO.
--- NOTE | 2020-11-15 04:50 | NUR ---
SHIFT SUMMARY ADMITTED FOR AMS. FULL CODE. HX OF FREQUENT FALLS, BED ALARM/CHAIR ALARMS SET. PLAN IS FOR PLACEMENT/GUARDIANSHIP. PT IS CONFUSED MUCH OF THE TIME, ALTHOUGH SHE HAS BEEN ABLE TO RELATE SOME NEEDS TO ME. SHE DOES FREQUENTLY REFUSE CARE. DR THOMAS IS PSYCHIATRIC CONSULT. DR LEVI IS CARDIAC CONSULT. PHYSICAL AND OCCUPATIONAL THERAPIES ARE WORKING WITH THIS PT. NO NEW CONCERNS THIS SHIFT
--- NOTE | 2020-11-15 15:40 | NUR ---
PATIENT NOTED TO BEING VERY CONFUSED. ORIENTED TO SELF ONLY. BECOMES EASILY IRRITABLE. VISUAL HALLUCINATIONS NOTED BY PATIENT. DENIES PAIN AND DISCOMFORT. SIMPLE COMMUNICATION IS MOST EFFECTIVE WITH PATIENT D/T LANGUAGE AND COGNATIVE BARRIERS. PATIENT CAN BE REDIRECTIBLE AT TIMES, BUT NOT USUALLY. NO ACUTE CHANGES NOTED OR REPORTED DURING THIS SHIFT. PATIENT IS RESTING IN HER ROOM AT THIS TIME. CALL LIGHT IN REACH.
--- NOTE | 2020-11-16 04:24 | NUR ---
SHIFT SUMMARY ADMITTED FOR AMS. FULL CODE. FOUND DOWN ON GROUND BY HER CAREGIVER. SHE IS AWAITING GUARDIANSHIP/PLACEMENT. SHE IS CONFUSED, FREQUENTLY SPEAKING NONSENSE. SHE SLEPT THROUGHOUT MOST OF SHIFT. DR THOMAS IS PSYCHIATRY CONSULT. DR LEVI IS CARDIOLOGY CONSULT. SHE DOES HALLUCINATE. PHYSICAL AND OCCUPATIONAL THERAPY IS WORKING WITH THIS PT. NO NEW CONCERNS THIS SHIFT
--- NOTE | 2020-11-16 17:13 | NUR ---
Ayaka was confused and irritable. She was eating her lunch with her hands and complaioned that her sons are "out to get me." She saw a "man" at the bedside that was not there. She appears to have weakend through this hospitalization. I met with her son, Jason, outside of room. He is trying to gain guardianship and complained that "Its going to take weeks to get done." I listened to his worried and concerns and offered emotional affirmation. WE have a good rapport, as I met this family when pt had cardiac event this past Summer. Jason would benefit from continued support as he is losing his mom a little bit each day. Assistant Offset Press Operator services will remain available.
--- NOTE | 2020-11-16 19:23 | NUR ---
SHIFT SUMMARY DEVIN WAS RELATIVELY COOPERATIVE IN THE MORNING, ABLE TO TAKE MEDS WITH WATER. THREW HER ENTIRE BREAKFAST TRAY ON THE GROUND DUE TO HALLUCINATING AND SEEING SNAKES UNDER THE TRAY. DENIED PAIN. GOT UP TO VOID A COUPLE OF TIMES THROUGHOUT THE SHIFT, SBA TO BR. SETS OFF BED ALARM REGULARLY, FALL RISK. REFUSED NIGHT TIME XARELTO AND GOT ANGRY AND STARTED YELLING. BED ALARM ON, CALL LIGHT IN REACH, REPORT GIVEN TO NIGHT NURSE
--- NOTE | 2020-11-16 23:12 | NUR ---
11/16/20 2310 PT AGREES TO TAKE MEDS NOW. SHE HAD REFUSED THEM EARLIER. TOOK MEDS WITH MILK. DECLINED NEED TO VOID. ASSISTED TO BED.
--- NOTE | 2020-11-17 07:14 | NUR ---
11/17/20 0630 PT SLEEPING DEEPLY. ATTEMPED TO WAKE FOR AM MEDS BUT REFUSED TO WAKE AND TAKE MEDS NOW. WILL INFORM DAYSHIFT RN. PT VERY CHALLENGING SHE WILL NOT BE RUSHED INTO DOING ANYTHING. GIVING HER PM MEDS TOOK 25 MINUTES WITH MUCH ENCOURAGMENT.
--- NOTE | 2020-11-17 19:14 | NUR ---
SHIFT SUMMARY DEVIN WAS VERY SLEEPY THIS SHIFT, MORE THAN YESTERDAY. SLEPT IN HER CHAIR MOST OF DAY, NOT AWAKE ENOUGH TO EAT BREAKFAST OR LUNCH (WOULD ENCOURAGE HER TO EAT, AND THEN SHE WOULD FALL ASLEEP PRIOR TO TAKING THE FIRST BITE). AO1 TO BR AND VOIDED IN TOILET. GOT ANGRY ONE TIME WITH CARE, BUT OTHERWISE HAD VERY FEW BEHAVIOR ISSUES THIS SHIFT, SHE SLEPT MOST OF THE DAY. COMPLAINED OF CHEST PAIN ONCE, VSS BUT THEN WENT BACK INTO ROOM A COUPLE MINUTES LATER AND SHE DENIED ANY CHEST PAIN. SWALLOWED PILLS WITH MUCH ENCOURAGEMENT. CALL LIGHT IN REACH, CHAIR ALARM ON (DID NOT SET IT OFF TODAY), FREQUENT PT CHECKS, REPORT GIVEN TO NIGHT NURSE
--- NOTE | 2020-11-18 04:50 | NUR ---
SHIFT SUMMARY ASSUMED CARE OF PT AT 1900. PT IS A/OX1. WHEN ASKED QUESTIONS PT WOULD FALL ASLEEP IF SHE DIDNT KNOW THEM. PT MOOD IS LABILE, SHE WILL YELL IF SHE FEELS SHE IS NOT BEING HEARD OR SHE DOESNT LIKE SOMETHING. PT HAD A HALLUCINATION OF A YOUNG BOY BEING IN HER ROOM, AND THAT THIS NURSE WAS TALKING TO HIM. HEART SOUNDS REGULAR, LUNG SOUNDS CLEAR. PT WAS CONTINENT T/O THE NIGHT. PT WAS 1P SBA WITH WALKER. NO ACUTE EVENTS DURING THE NIGHT. PT SLEPT T/O THE NIGHT. CALL LIGHT IN REACH, BED IN LOWEST POSITION. BED ALARM ON.
--- NOTE | 2020-11-18 17:58 | NUR ---
SHIFT SUMMARY PT HAS BEEN SLEEPING A LOT OF THE SHIFT. PT IS CONFUSED WHEN AWAKE. HAS A GOOD APPETITE. NO COMPLAINTS OF PAIN THIS SHIFT. PT HALLUCINATING AT TIMES AND CAN BE DIFFICULT TO GET HER TO FOLLOW DIRECTION. NO CHANGES THIS SHIFT. WAITING FOR SAFE PLACEMENT. CALL LIGHT IN REACH. CHAIR ALARM ON FOR SAFETY. WILL CONTINUE TO MONITOR.
--- NOTE | 2020-11-19 04:54 | NUR ---
SHIFT SUMMARY ASSUMED CARE OF PT AT 1900. PT IS A/OX1-2. PT IS MORE ALERT THAN YESTERDAY BUT JUST CONFUSED. PT WILL DOSE IN AND OUT OF SLEEP DURING CONVERSATION AND HER SENTENCES SOMETIMES DONT MAKE SINCE. HEART SOUNDS REGULAR, LUNG SOUNDS DIMINISHED, PT IS WEARING 1L NC FOR COMFORT. PT IS CONTINENT OF URINE. PT BUTTOCK HAS A PINK SPOT, IT IS BLANCHABLE. NO ACUTE EVENTS, PT SLEPT T/O THE NIGHT. CALL LIGHT IN REACH, BED IN LOWEST POSTION. BED ALARM ON.
--- NOTE | 2020-11-19 18:40 | NUR ---
SHIFT SUMMARY PT HAS BEEN PLEASANT BUT CONFUSED THIS SHIFT. MEDICATED FOR PAIN X1 THIS SHIFT. PT HAS HAD A GOOD APPETITE. UP IN CHAIR MOST OF THE DAY BUT IS SLEEPY. PT DECLINES TO GET BACK IN BED A LOT OF THE TIME. NO ACUTE CHANGES. WAITING FOR GUARDIANSHIP AND PLACEMENT. WILL MONITOR. CHAIR ALARM IN PLACE.
--- NOTE | 2020-11-20 04:35 | NUR ---
SHIFT SUMMARY ASSUMED CARE OF PT AT 1900. PT IS A/OX1. PT IS MORE ALERT THIS SHIFT BUT STILL VERY CONFUSED AND HAVING HALLUCINATIONS OF PEOPLE BEING IN THE ROOM. HEART SOUNDS REGULAR, LUNG SOUNDS DIMINISHED, PT ON 1L NC FOR COMFORT. PT ABD IS DISTENDED AND FIRM. PT WAS A 1P FWW TO BATHROOM. CONTIENT OF URINE. PT DID NOT SLEEPT VERY WELL THIS PM. CALL LIGHT IN REACH, BED IN LOWEST POSTION, BED ALARM ON.
--- NOTE | 2020-11-20 16:38 | NUR ---
Ayaka was talkative, but confused. She reported seeing things on the wolfe that weren't there. She chatted hapily with me about things she likes to eat. she appeared to be in a fairly good mood today and remembered me from previous visits. No family present at time of visit. I will remain available.
--- NOTE | 2020-11-20 19:55 | NUR ---
SHIFT SUMMARY- PT ALERT AND OREINTED TO SELF AND FAMILY. NO ACUTE CHANGE TODAY. SHE CAN BECOME AGGITATED BUT SEEMS TO BE REDIRECTABLE PRN MEDICATION AVAILABLE IF NEEDED. PT SEEMS TO BECOME MORE IRRITABLE WITH STAFF WHEN HER SON IS PRESENT. PT SITTING AT THE EOB AT THE TIME OF SHIFT CHANGE, SOME MEDS WERE GIVEN LATE THE PT WAS DECLINING THEM OR THE VITALS REQUIRED, WHEN STAFF WALK AWAY, AND "CHANGE FACE" SHE IS MORE WILLING AND MEDS CAN BE GIVEN.
--- NOTE | 2020-11-21 05:57 | NUR ---
SHIFT SUMMARY PATIENT ALERT BUT CONFUSED, ONLY ORIENTED TO SELF AND FAMILY. PATIENT WAS SLIGHTLY AGITATED AT BEGINNING OF SHIFT, BUT SETTLED DOWN AND WAS ABLE TO SLEEP ALL NIGHT. PRN MEDICATION GIVEN PER EMAR FOR PAIN. BED IN LOWEST POSITION WITH WHEELS LOCKED AND ALARM ON. CALL LIGHT WTIHIN REACH. REPORT GIVEN TO ONCOMING RN.
--- NOTE | 2020-11-21 09:49 | NUR ---
Pt resting in bed with her eyes closed upon arrival. Pt wakes to gentle verbal stimuli. Pt engages in non sensical conversation. Pt exresses frustrations regarding small portion sizes on her meal trays. Continued therapeutic listening and validated concerns. Reviewed chart and discussed case with Bedside RN Maris. Palliative Care will remain available if called upon.
--- NOTE | 2020-11-21 17:02 | NUR ---
PT HAS BEEN AOX2 WITH CONFUSION AND HALUCINATIONS. PT IS A STANDBY ASSIST AND DOES GOOD AMBULATING. PT HAS BEEN SEEING HER CAT IN THE ROOM AND TRYS TO WALK OUT OF ROOM LOOKING FOR IT. PT NEEDS REDIRECTION AND GETS A BIT ANXIOUS. PT WAS TREATED PER EMAR FOR AGITATION. PT HAS BED ALARM IN PLACE WILL CONTINUE TO MONITOR.
--- NOTE | 2020-11-21 18:26 | NUR ---
Spiritual care note: Ayaka was arguing with her son Jason, when I entered room. She was having hallucinations and Jason was trying to correct her. I gently explained to Jason that he should not try to contradict his mom b/c for her the things she is seeing is her reality. It was clearly upsetting to Ayaka to have her son argue with her. Once this was established, she and Jason had a pleasant conversation. Both were calm and happy when I left them. Jason appeared to benefit from emotional affirmation and gentle guidence. I will remain available to pt and family.
--- NOTE | 2020-11-22 04:26 | NUR ---
SHIFT SUMMARY NO ACUTE CHANGES THIS SHIFT, MEDICATED 1X FOR AGITATION, PT SET OFF BED ALARM AND WAS DIFFICULT TO REDIRECT SHE MADE IT TO THE HALLWAY LOOKING FOR HER CAT. AFTER RETURNING TO HER ROOM WAS MEDICATED FOR AGITATION AND WAS COOPERATIVE W/CARE AND SLEPT T/O THE NIGHT. PT SLEEPING AT THIS TIME, BED ALARM ACTIVE, WILL CONT TO MONITOR UNTIL REPORT GIVEN TO DAY RN.
--- NOTE | 2020-11-22 15:33 | NUR ---
PATIENT CONTINUES TO BE HER CONFUSED SELF. ALERT AND ORIENTED TO SELF ONLY. VISUAL HALLUCINATIONS NOTED. BP SLIGHTLY ELEVATED HOWEVER VITALS ARE OTHERWISE STABLE. PATIENT CONTINUES TO AWAIT PLACEMENT FOR DISCHARGE. NO ACUTE CHANGES TO REPORT OF AT THIS TIME. PATIENT SITTING UPRIGHT IN ROOM IN BEDSIDE CHAIR WITH CALL LIGHT IN REACH.
--- NOTE | 2020-11-22 17:38 | NUR ---
Spiritual care note: Ayaka was alione in room and seeing things that were not there. She kept stopping conversations to talk about the "animal against the wall" or her cat being inside the mattress. These things did not appear to concern her or make her fearful. We spoke about her childhood in [place] and I brought her a set of prayer beads that I brought home from [facility]. She always remembers me and we have an easy rapport. I will remain available.
--- NOTE | 2020-11-23 05:07 | NUR ---
SHIFT SUMMARY NO ACUTE CHANGES THIS SHIFT, MEDICATED FOR AGITATION BEFORE BED, MEDICATED 1X FOR BACK PAIN, C/O CONSTIPATION (NO BM CHARTED SINCE 11/15)- PT STATED THAT SHE DID NOT WANT BOWEL CARE UNTIL THE AM, SLEPT T/O THE NIGHT & SLEEPING AT THIS TIME, BED ALARM ACTIVE, WILL CONT TO MONITOR UNTIL REPORT GIVEN TO DAY RN.
--- NOTE | 2020-11-23 17:14 | NUR ---
Spiritual care note: Provided supportive visit to Ayaka. She remains confused and sees things on floor/wolfe that are not there. We had a disjointed but pleasant conversation. She allowed me to pray for her today. No famliy present. I will remain available.
--- NOTE | 2020-11-23 18:53 | NUR ---
SHE RECEIVED ZYPREXA X2 TODAY AND OXYCODONE X1. SHE HAS BEEN CONFUSED, PARANOID, HAD HALLUCINATIONS BUT IS COOPERATIVE. NO CHANGES TODAY. VOIDS WELL.
--- NOTE | 2020-11-24 04:26 | NUR ---
SHIFT SUMMARY NO ACUTE CHANGES THIS SHIFT, NO C/O ANY KIND, WAS COOPERATIVE W/CARE THIS SHIFT, SLEPT T/O THE NIGHT, SLEEPING AT THIS TIME, BED ALARM ACTIVE, WILL CONT TO MONITOR UNTIL REPORT GIVEN TO DAY RN.
--- NOTE | 2020-11-24 16:39 | NUR ---
SHIFT SUMMARY- PT IS ALERT. INTERMENTENTLY ORIENTENTED. SHE IS EATING AND DRINKING WELL. SHE REFUSED A SHOWER THIS MORNING. SHE IS FREQUENTLY GETTING UP WITHOUT ASSISTANCE SETTING OFF CHAIR ALARM. SHE IS NONSENSICAL AT TIMES WANTING ME TO COMBINE SUGAR PACKETS AND THINKING SHE IS AT HOME. SHE BELIEVED THAT SHE HAD A DOCTORS APOINTMENT AT THE CARDIOLOGY OFFICE TODAY AND THAT SHE NEEDED TO LEAVE THE HOSPITAL TO GO THERE. SHE IS CURRENTLY IN THE CHAIR, ALARM ON AND CALL LIGHT WITHIN REACH.
--- NOTE | 2020-11-24 21:44 | NUR ---
pt agitated and trying to wander into other pt's rooms. pt is very defensive and will not listen to staff members. pt threatened and said to nurse "i am going to kill you" after trying to convience her to go back to her room. security called and were able to walk pt back to her room. pt is a/o x2 to self and place. will continue to monitor.
--- NOTE | 2020-11-25 05:23 | NUR ---
ADMISSIONS EVALUATOR SUMMARY PT A/O X1-2 WITH VISUAL HALLUCINATIONS. PT SLEPT WELL AFTER NIGHTLY SEROQUEL GIVEN PER EMAR. PT WOKE UP AROUND 0415 THIS MORNING. PT A LITTLE AGITATED AND GETS UP OCCASIONALLY FROM THE BED AND SETS OFF ALARM. PT GETS MAD WHENEVER ALARM GOES OFF EVEN WITH EDUCATION THAT THIS IS FOR SAFETY REASONS. PT DENIES NEEDING TO USE THE BATHROOM. VSS, CALL LIGHT WITHIN REACH, BED ALARM IN PLACE, BED IN LOWEST POSITION. WCC.
--- NOTE | 2020-11-25 14:19 | NUR ---
REPORT TO ANN-MARIE LANDIN. MOVED TO [id number]
--- NOTE | 2020-11-25 14:23 | NUR ---
1415 ASSUMED CARE OF PT. REPORT FROM MARKO LANDIN. PT IS ALERT AND ACTUALLY PLEASANT WITH NURSE. SHE IS RESTING IN BED, CALL LIGHT WITHIN REACH. WILL CONTINUE TO MONITOR.
--- NOTE | 2020-11-25 16:50 | NUR ---
PT TRANSFERRED FROM MAIN FLOOR THIS SHIFT. SHE HAS BEEN PLEASANT AND COOPERATIVE YET REMAINS CONFUSED AND WILL HALLUCINATE AT TIMES. SHE IS ABLE TO WALK AROUND BUT SHOULD BE ONE ASSIST. SHE DOES GET UP WITH OUT USEING HER CALL LIGHT AND HAS ALARMS ON HER BED, CHAIR AND IS UNDER CAMERA SUPERVISION. SHE HAS HAD NO COMPLAINTS OTHER THAN THIS NURSE NOT BEING ABLE TO "FOLLOW ALONG" WHEN SHE STARTS TALKING IN AMHARIC... SHE HAS BEEN PLEASANT SINCE HER ARRIVAL IF NOT BRUTALLY HONEST. CALL LIGHT WITHIN REACH.
--- NOTE | 2020-11-26 04:43 | NUR ---
SHIFT SUMMARY NO ACUTE CHANGES THIS SHIFT. PT IS A&O TO SELF, PLACE AND WAS ABLE TO TELL ME WHO THE PRESIDENT IS. PT CAN BE EASILY IRRITATED WHEN STAFF TRIES TO REDIRECT PT. PT SLEPT WELL T/O NIGHT WITH NO COMPLAINTS. PT IS LAYING IN BED WITH EYES CLOSED, EVEN AND UNLABORED RESPIRATIONS. BED IN LOWERED POSITION WITH SIDE RAILS UP FOR SAFETY. CALL LIGHT AND PERSONAL ITEMS WITH IN REACH. NO APPARENT NEEDS OR DISTRESS AT THIS TIME, WILL CONTINUE TO MONITOR UNTIL REPORT GIVEN TO DAY RN.
--- NOTE | 2020-11-26 16:05 | NUR ---
PT HAS BEEN QUITE PLEASANT THIS SHIFT. SHE HAS BEEN ORIENTED THIS SHIFT COMING OUT AND TALKING WITH STAFF WHILE SITTING IN CHAIR NEXT TO NURSE. SHE HAS SHOWN NO AGGRESSION OR AGGITATION . PT GETS FRUSTRATED WHEN SHE CANT REMEMBER A WORD BUT ACKNOWLEDGES THAT SHE CANT REMEMBER. SHE HAS BEEN ABLE TO EVENTUALLY REMEMBER THE WORD SHE IS SEARCHING FOR. THERE APPEARS TO BE A LANGUAGE BARRIER WELL HER UNDERLYING ISSUES. PT SEEMS TO DO VERY WELL WHEN SHE IS SHOWN SOME ATTENTION . SHE IS INDEPENDENT IN THE ROOM, CONTINENT AND ABLE TO EXPRESS ANY NEEDS. SON AT BEDSIDE AT THIS TIME. CALL LIGHT WITHIN REACH.
[2020-11-27 05:02] LABS: BASOPHILS ABSOLUTE AUTO 0.02 K/mm3 (0.00-0.23); BASOPHILS PERCENT AUTO 0 % (0-2); EOSINOPHILS ABSOLUTE AUTO 0.17 K/mm3 (0.00-0.68); EOSINOPHILS PERCENT AUTO 3 % (0-6); Hematocrit 43.6 % (33.0-51.0); Hemoglobin 13.7 g/dL (11.5-16.0); IMMATURE GRAN ABSOLUTE AUTO 0.02 K/mm3 (0.00-0.10); IMMATURE GRAN PERCENT AUTO 0 % (0-1); LYMPHOCYTES ABSOLUTE AUTO 2.26 K/mm3 (0.84-5.20); LYMPHOCYTES PERCENT AUTO 36 % (21-46); MONOCYTES ABSOLUTE AUTO 0.49 K/mm3 (0.16-1.47); MONOCYTES PERCENT AUTO 8 % (4-13); Mean Corpuscular HGB 27.6 pg (26.0-34.0); Mean Corpuscular HGB Conc 31.4 g/dL (31.5-36.5); Mean Corpuscular Volume 88 fL (80-100); Mean Platelet Volume 12.4 fL (9.1-12.4); NEUTROPHILS ABSOLUTE AUTO 3.39 K/mm3 (1.96-9.15); NEUTROPHILS PERCENT AUTO 53 % (41-73); Platelet Count 126 K/mm3 (150-400); RDW Coefficient Variation 20.9 % (11.7-14.2); RDW Standard Deviation 66.5 fL (35.1-46.3); Red Blood Cell Count 4.97 M/mm3 (3.80-5.20); White Blood Cell Count 6.35 K/mm3 (4.00-11.30)
--- NOTE | 2020-11-27 05:02 | NUR ---
SHIFT SUMMARY ALERT, ABLE TO MAKE NEEDS KNOWN. DEFIANT WITH CARE. ARGUMENTATIVE WITH MOST CONVERSATION. STEADY GAIT NOTED. ROAMING INDEPENDENTLY IN HALLWAY. C/O PAIN/DISCOMFORT; MEDICATED PER EMAR. REMAINS HYPERTENSIVE; ALL OTHER VS WNL. APPEARED TO REST MUCH OF THE NIGHT. NO ACUTE CHANGES NOTED. BED IN LOWEST POSITION. CALL LIGHT AND BELONGINGS WITHIN REACH. AWAITING PLACEMENT. CONTINUE WITH CURRENT PLAN OF CARE. REPORT TO ONCOMING RN.
[2020-11-27 05:16] LABS: Albumin, Blood 3.3 g/dL (3.4-5.0); Anion Gap 6 mmol/L (6-16); Blood Urea Nitrogen 16 mg/dL (8-24); Bun/Creatinine Ratio 17.8 (12.0-20.0); CO2, Blood 28 mmol/L (21-32); Calcium, Blood 9.7 mg/dL (8.5-10.1); Chloride, Blood 112 mmol/L (98-108); Glomerular Filtration Rate >60 (60-); Glucose, Blood 105 mg/dL (70-99); Phosphorus, Blood 3.6 mg/dL (2.5-4.9); Potassium, Blood 3.9 mmol/L (3.5-5.5); Sodium, Blood 146 mmol/L (136-145)
--- NOTE | 2020-11-27 16:53 | NUR ---
SHIFT SUMMARY- PT IS ALERT AND COOPERATIVE. SHE IS EATING AND DRINKING WELL. SHE HAS BEEN AMBULATING IN THE JUAN. HER SON WAS IN TO VISIT THIS AFTERNOON. SPOKE WITH THE DOCTOR ABOUT HER SWOLLEN FEET AND LASIX WERE ADDED. SHE IS CURRENTLY SITTING IN HER ROOM WITH THE CALL LIGHT WITHIN REACH.
--- NOTE | 2020-11-27 17:50 | NUR ---
Spiritual care note: Ayaka was sitting outside her room talking to her son on phone. We had a pleasant, disjointed conversation due to her hallucinations/confusion. She kept slipping into [place]ican throughout our conversation. She did not realize she was doing it. She has a sense that she cannot return home and is unhappy about this. She appears quite weak. Prayer and encouragement provided to good effect. I will remain available.
--- NOTE | 2020-11-27 20:13 | NUR ---
ASSUMPTION OF CARE. PATIENT IS UP WALKING THE HALLS, CONTINUES TO ASK EVERYONE IF THEY WOULD TAKE HER HOME. SHE WOULD PAY THEM. WHEN THEY SAY THE CAN'T SHE GETS VERY IRRITATED AND MAD. SHE IS VERY HARD TO DIRECT AT TIMES, IS DEFENSIVE TONIGHT, WONDERED INTO ANOTHER ROOM THINKING THE PATIENT WAS CALLING HER AND GOT INTO AN ARGUEMENT WITH HER THEN STARTED TO CRY. SHE SAT IN THE JUAN FOR A WHILE THEM BACK IN THE ROOM, WONDERING AROUND WHEN SHE GETS UPSET IT IS DIFFICULT TO UNDERSTAND HER WHICH ALSO FRUSTRATES HER. HULLUCINATING AND TELLING ME TO FIX THE ISSUES LIKE GET THE DOGS OUT OF HER ROOM. WILL CONITNUE TO MONITOR AND DIRECT. CALL LIGHT IS IN REACH.
--- NOTE | 2020-11-28 05:31 | NUR ---
SHIFT SUMMARY: AOX2, DISORIENTED ABOUT PLACE, AND WHY SHE IS HERE. WAS VERY AGGITATED AT START OF SHIFT DUE TO WANTING TO BE TAKEN HOME AND NO ONE WOULD DO IT. AUDITORY AND VISUAL HULLUCINATIONS. SHE THOUGHT HER SON BROUGHT HER THINGS BUT THERE WAS NOTHING HERE FROM HIM. THOUGHT WE WERE POISENING HER WITH HER DINNER AND WOULD NOT EAT. WAS UP IN JUAN FOR SHORT PERIOD OF TIME UNTIL WAS ABLE TO SUPERVISOR GROWER HER TO BED. MEDICATED FOR PAIN, SHE DID SAY AT ONE TIME THE PAIN MEDICATION DID NOT WORK BUT NEVER COMPLAINED OF PAIN AGAIN. EDEMA IN LEGS STILL PRESENT 2+. SHE DID REFUSE TO HAVE HER VITALS TAKEN THIS SHIFT AND LAB THIS AM. WILL HAVE LAB RETRY AROUND 0800. NO OTHER CHANGES TO REPORT, CALL LIGHT HAS REMAINED IN REACH.
--- NOTE | 2020-11-28 17:51 | NUR ---
SHIFT SUMMARY PT HAS BEEN AMBULATING IN ROOM AND JUAN INDEPENDENTLY. MEDICATED FOR PAIN X1 THIS SHIFT. PT CONFUSED AND HALLUCINATES AT TIMES. NO ACUTE CHANGES THIS SHIFT. WAITING FOR PLACEMENT. CALL LIGHT IN REACH.
--- NOTE | 2020-11-28 19:10 | NUR ---
ASSUMPTION OF CARE. YULIET WAS LAYING DOWN ON SIDE BED IN ROOM. ASKED FOR ME TO SIT DOWN FOR A PERIOD OF TIME. SHE WANTED TO TALK ABOUT HER FAMILY AND LIVING IN [place]. SHE SHARED HER HARDSHIP RAISING HER BOYS. AOX2 IN A GOOD MOOD TONIGHT. DENIES ANY PAIN AT THIS TIME. IS UP INDEPENDENT IN THE ROOM. EDEMA IN LEGS STILL PRESENT, ENCOURAGED HER TO PUT THEM UP. STATE SHE IS TIRED. DENIES ANY NEEDS AT THIS TIME. WILL CONTINUE TO MONITOR T/O THE NIGHT.
--- NOTE | 2020-11-29 05:15 | NUR ---
SHIFT SUMMARY: AOX2, PLEASANT THIS SHIFT, HAS STAYED QUITE DOING THINGS IN HER ROOM, ONLY CAME OUT IN THE JUAN ONCE. SHE STILL DID NOT EAT DINNER, TRIED SEVERAL TIMES FOR HER TO. SHE WAS IN A GOOD MOOD TALKING ABOUT HER LIFE IN [place] AND RAISING HER KIDS. VS DID SHOW HTN PRIOR TO TAKING HER MEDS, SHE DID NOT WANT TO HAVE IT RETAKEN. DOES NOT LIKE TO WOKE UP THIS MORNING TO TAKE MEDS OR HAVE VS TAKEN. SLEPT WELL T/O THE NIGHT. CALL LIGHT IS IN REACH.
--- NOTE | 2020-11-29 17:22 | NUR ---
SHIFT SUMMARY PT HAS BEEN COMPLAINING OF BACK PAIN WITH PAIN MEDICATIONS GIVEN. NEW ORDER FOR MUSCLE RELAXER AND THIS WAIIING FOR PHARMACY TO SEND TO ADMINISTER. PT AMBULATING IN ROOM AND JUAN. PT HAS BEEN IRRITABLE TODAY BUT EASILY REDIRECTED. SON IN TO SEE PT AND BROUGHT SNACKS FOR PT. NO ACUTE CHANGES AT THIS TIME. WILL CONTINUE TO MONITOR. CALL LIGHT IN REACH.
--- NOTE | 2020-11-30 04:23 | NUR ---
SUMMARY PT HAS BEEN RUDE AND IRRITATED. PT HAS NOT BEEN REDIRECTABLE. PT EVENTUALLY WENT TO BED LATE IN SHIFT. PT HAS REFUSED TO HAVE VS DONE. PT ALSO REFUSED ALL NIGHT MEDS. PT CURRENTLY SLEEPING AND IN NO DISTRESS. CALL LIGHT IN REACH.
--- NOTE | 2020-11-30 18:49 | NUR ---
SHIFT SUMMARY PT HAS BEEN VERY CONFUSED TODAY AND HALLUCINATING AT TIMES. PT AMBULATING IN JUAN AND ROOM WITHOUT DIFFICULTY. PT TOOK A SHOR NAP EARLIER IN THE AFTERNOON. MEDICATED FOR PAIN X1 THIS SHIFT. SON IN TO VISIT. NO ACUTE CHANGES THIS SHIFT. CALL LIGHT IN REACH.
--- NOTE | 2020-12-01 03:35 | NUR ---
SUMMARY PT IS MORE AGRREEABLE THIS SHIFT. PT CONTINUES TO REFUSE MEDS AND VS'S TO BE OBTAINED. PT HAS NOT SLEPT VERY MUCH. PT CURRENTLY SLEEPING AND BREATHING EASY. NO NEW ISSUES NOTED. CALL LIGHT IN REACH.
--- NOTE | 2020-12-01 18:43 | NUR ---
SHIFT SUMMARY PT AXO TO SELF AND CITY THIS MORNING. PT AGGITATED WITH PM XARELTO DOSE, REFUSED. VSS. PT REFUSED DINNER BUT DRANK CHOCOLATE ENSURE. NO IV IN PLACE THIS SHIFT. BLE EDEMA NOTED, 4+. THIS NURSE ENCOURAGED ELEVATING LEGS, PT ARGUED AND REFUSED. BED IN LOW POSITION, CALL LIGHT WITHIN REACH. PT UP AD KATHIA. MEDICATED X1 FOR PAIN.
--- NOTE | 2020-12-01 21:22 | NUR ---
RESTING QUIETLY AT ROUNDING. CALL LIGHT IN REACH
--- NOTE | 2020-12-02 03:44 | NUR ---
SHIFT SUMMARY HAS BEEN RESTING QUIETLY AT INTERVALS THIS SHIFT. SEEMS TO BE RESISTIVE TO TAKING MEDS, BUT FINALLY TOOK THEM WHEN NURSE LEFT ROOM (NURSE WAS OBSERVING FROM DOORWAY). RESTING QUIETLY AT THIS TIME. CALL LIGHT IN REACH.
--- NOTE | 2020-12-02 17:53 | NUR ---
SHIFT SUMMARY NO ACUTE CHANGES, FORGETFUL AND CONFUSED T/O SHIFT. PT BECOMES EASILY IRRITABLE BUT WAS COOPERATIVE FOR THE MOST PART, TOOK HER PO MEDS. NO COMPLAINTS OF DISTRESS T/O SHIFT. PT IS A SBA, SLIGHTLY UNSTEADY GAIT. PT IS CURRENTLY SITTING UP EATING DINNER, CALL LIGHT IS WITHIN REACH.
--- NOTE | 2020-12-02 20:04 | NUR ---
RESTING QUIETLY ON VAL IN ROOM. CALL LIGHT IN REACH
--- NOTE | 2020-12-03 00:22 | NUR ---
During rounds, noted pt not on bed, was noted to be sitting on floor on other side of the bed. Stated she felt she was ok, denied pain. No noted s/s trauma. Neuro check unchanged from shift commence assessment. VSS. Assisted to bed with another staff member. Charge nurse and MD notified. No new orders from MD. Bed alarm on. Call light in reach. Will continue to monitor.
--- NOTE | 2020-12-03 00:55 | NUR ---
RESTING QUIETLY. NO NOTED ACUTE DISTRESS. CALL LIGHT IN REACH. RAILS UP X 3. BED ALARM REMAINS ON
--- NOTE | 2020-12-03 03:15 | NUR ---
SHIFT SUMMARY HAS BEEN RESTING QUIETLY MOST OF SHIFT. WAS FOUND SITTING ON FLOOR EARLIER, AND ASSISTED BACK TO BED WITHOUT NOTED DISTRESS/TRAUMA. HAS BEEN RESTING QUIETLY WITH NO NOTED DISTRESS SINCE WELL. CALL LIGHT IN REACH. RAILS UP X 3, BED ALARM ON. WILL CONTINUE TO MONITOR
--- NOTE | 2020-12-03 16:52 | NUR ---
SHIFT SUMMARY NO ACUTE CHANGES, A&O TO SELF AND PLACE, COOPERATIVE AND CALM T/O SHIFT. SOME CONFUSION AND FORGETFULNESS AT TIMES. PT WAS ABLE TO REST SOME TODAY, SHE STATED SHE WAS UNABLE TO SLEEP LAST NIGHT. APPEARED TO BE IN NO DISTRESS T/O SHIFT. PT IS CURRENTLY LYING IN BED WITH CALL LIGHT IN PLACE AND BED ALARM ON.
--- NOTE | 2020-12-03 21:36 | NUR ---
ASSISTED BACK TO BED AFTER SHE AMBULATED TO BATHROOM. BED ALARM ON, CALL LIGHT IN REACH. DENIES PAIN.
--- NOTE | 2020-12-04 03:52 | NUR ---
SHIFT SUMMARY INTERMITTENT BOUTS OF WAKEFULNESS, THE LATEST ONE SHE VOICED THERE WSA A"SNAKE" IN HER BED. NURSE POINTED OUT THAT IT WAS A CALL LIGHT, SHE LOOKED CONCERNED AND SAID TO GET RID OF IT. REASSURANCE GIVEN. REDIRECTED AND SLEEP ENCOURAGED. CALL LIGHT IN REACH. BED ALARM ON.
--- NOTE | 2020-12-04 18:06 | NUR ---
PT SITTING IN BED EATING DINNER. PT REMAINS MEDICATION COMPLIANT ALTHOUGH AGITATED AND ANGRY AT TIMES. PT CONT. TO YELL OUT FOR YOU AND THEN TELL YOU TO RETURN TO WHERE YOU CAME FROM WHILE LAUGHING. PT HAD A PLEASANT VISIT FROM FAMILY TODAY, SHE REMAINS ORIENTED TO SELF, FAMILY, PLACE BUT NOT DATE, TIME NOR SITUATION. STAFF WILL CONT. TO MONITOR FOR NEEDS.
--- NOTE | 2020-12-05 03:49 | NUR ---
SOAKER MEAT SUMMARY A/O TO SELF ONLY. EASILY AGITATED WHEN PROVIDING CARE. PT TOOK PILLS WHOLE WITH WATER. APPEARED TO SLEEP T/O THE NIGHT. MEDICATED FOR PAIN X1. NO ACUTE CHANGES AT THIS TIME. BED IN LOWEST POSITION WITH CALL LIGHT IN REACH. WILL CONTINUE TO MONITOR AND REPORT TO ONCOMING RN.
--- NOTE | 2020-12-05 17:48 | NUR ---
SHIFT SUMMARY PT REMAINED RESTING IN BED AND DANGLING ON SIDE OF BED FOR MOST OF THE SHIFT. UNTIL APPROX. 1500. PT STARTED TO INCREASE IN AGITATION AND BECAME DIFFICULT TO RE-ORIENT. PT ASKED FOR PAIN MEDS, WHICH WERE PROVIDED. PT THEN REFUSED TO TAKE THE PAIN MED STATING SHE WANTED TO "SAVE IT FOR BEDTIME". PT ENCOURAGED TO HAND OVER PREVIOUS MED AND THAT A NEW ONE WOULD BE PROVIDED AT BEDTIME, BUT PT CONTINUED TO REFUSE. PT OFFERED SL ZYPREXA AND REFUSED MEDICATION. MEDS WERE REMOVED FROM THE PTS HANDS WITHOUT EASE BY 2 RNS. PT CONTINUED TO INCREASE IN AGITATION. WALKING OUT IN THE HALLWAY AND REFUSING TO GO BACK TO ROOM. PT THEN SEATED HERSELF IN THE HALLWAY & THREW HER WATER ACCROSS THE FLOOR. SECURITY CALLED AT THIS TIME. DR. MATIAS CALLED & NOTIFIED OF EVENTS. IM ZYPREXA AND RESTRAINT ORDER OBTAINED. PT CONTINUED TO BE COMBATIVE. HITTING, KICKING, & TRYING TO PUNCH STAFF. PT EXTREMETIES HELD DOWN AND ZYPREXA GIVEN IN HER L DELTOID. PT THEN ESCORTED TO HER BED. AIREL PLACED WITH THE HELP OF SECURITY AND 2 RNS. PT CURRENTLY MORE CALM & SITTING UPRIGHT IN BED. DINNER ON BEDSIDE TABLE. CALL LIGHT IN REACH. VS REVIEWED. NO OTHER ACUTE CHANGES IN ASSESSMENT OTHER THAN BEHAVIOR/AGITATION/COMBATIVENESS.
--- NOTE | 2020-12-05 17:50 | NUR ---
Spiritual care note: Met with Ayaka this afternoon. She was calm, but told me several stories that were clearly untrue. She spoke at length about having snakes in her bed. She also became tearful when she told me about not being able to go home. She has fleeting moments of lucidity. We have a good rapport and she appears to like me. She was calm and peaceful when I left her. Provided encouragement and theraputic listening. I will remain available.
--- NOTE | 2020-12-06 05:34 | NUR ---
TECHNICAL SUPPORT INTERN SUMMARY PT A&O TO SELF ONLY, CONFUSED, IRRITABLE AT TIMES AND EASILY AGITATED AT STAFF. AT APPROX 0100 PT WAS THROWING HER CANDY ON THE FLOOR, PT ALSO CONT TO HAVE VISUAL HALLUCINATIONS, PT REPORTED SEEING CREATURES IN THE BOTTOM OF HER BED. PT CONT ON ARIEL VEST T/O SHIFT. NO C/O PAIN OR ANY DISCOMFORT. DENIES CP, SOB OR N&V. PT CURRENTLY RESTING IN BED AT THIS TIME. BED AT LOWEST POSITION W/ ALARM ON, CALL LIGHT WITHIN REACH.
--- NOTE | 2020-12-06 18:11 | NUR ---
SHIFT SUMMARY RESTRAINTS REMOVED APPROX NOONTIME AND HAS BEEN APPROPRIATE SINCE. REMAINS IMPULSIVE AND NOT ALWAYS WILLING TO FOLLOW DIRECTIONS BUT DOES CALM IF ALLOWED TO MAKE UP HER OWN MIND. SON IN TO VISIT THIS AFTERNOON AND DESICION WAS MADE BY SON AND CAREMANAGERS THAT PT WAS TO DISCHARGE HOME WHILE SON CONTINUED TO SEEK [employer]ARD[employer]IP AND PRIOR TO GOING TO [facility]. CAREGIVERS TO BE ARRANGED PRIOR TO LEAVING.
--- NOTE | 2020-12-07 04:42 | NUR ---
SHIFT SUMMARY- PT. ALERT TO SELF, CONFUSED WITH VISUAL HALLUCINATIONS. PT. EASILY AGITATED. C/O NECK PAIN, MEDICATED PER EMAR WTH MINIMAL EFFECT. PT. WAS UP IN THE CHAIR FOR PART OF THE NIGHT AND AMBULATED IN THE ROOM W/O DIFFICULTY. SCHEDULED MEDS TAKEN, TOLERATED WELL. PT. ASSISTED TO BED, ASLEEP THE REST OF THE NIGHT, NO APPARENT DISTRESS NOTED. VSS. CALL LIGHT WITHIN REACH, SIDE RAILS UPX3, AND BED ALARM ON. WILL CONT TO MONITOR.
--- NOTE | 2020-12-07 17:20 | NUR ---
Spiritual care note: Ayaka tells me that her father has been coming to her and is asking for her forgiveness. She understands that he long ago, and feels he is coming to her in spirit. She was tearful and asked me what to do. We spoke at length about her dad. Gentle senior living sales counselor was well recieved. Prayer provided. Heavy Media Operator Services will remain available.
--- NOTE | 2020-12-07 18:10 | NUR ---
SHIFT SUMMARY PT HAS BEEN UP IN CHAIR SINCE LATE MORNING. 1 ASSIST WITH MOVING ABOUT IN ROOM. SHIP LOADER REPORTS PT WILL BE DISCHARGING HOME ON FRIDAY WITH SON AND HE WILL HAVE CAREGIVERS IN PLACE STARTING THE BEGINNING OF THE WEEK. PT HAS BEEN COOPERATIVE FOR THE MOST PART WITH CARE TODAY BUT DID BECOME UPSET DURING HER SHOWER BECAUSE THE WATER KEPT CHANGING FROM HOT TO COLD.
--- NOTE | 2020-12-08 04:49 | NUR ---
SHIFT SUMMARY- NO ACUTE EVENTS OVERNIGHT. PT. CONFUSED, CALM LAST NIGHT, ASLEEP MOST OF THE NIGHT. NO APPARENT DISTRESS NOTED. NO C/O PAIN OR DISCOMFORT T/O THE NIGHT. PLAN FOR POSS D/C TO HOME WITH SON ON SUN, VSS. CALL LIGHT WITHIN REACH, SIDE RAILS UPX2, AND BED ALARM ON. WILL CONT TO MONITOR.
--- NOTE | 2020-12-08 19:19 | NUR ---
SHIFT SUMMARY PT IS AO TO SELF. PT DENIES PAIN, N/V, SOB. PT IS STANDBY ASSIST IN ROOM. PLAN IS TO DC ON FRIDAY. PT SAT IN [place] WITH STAFF THIS NATHANIEL WHICH SEEMED TO HELP PT'S MOOD. PT DID NOT HAVE VISITORS TODAY. PT IS IN ROOM, CALL LIGHT IN REACH, BED IN LOW POSITION.
--- NOTE | 2020-12-09 06:46 | NUR ---
CENTER MANAGER SUMMARY PT A/O X1 TO SELF. SLEPT WELL TONIGHT. IT APPEARS IN CHART PT HAD NOT HAD A BM IN SEVERAL DAYS, HOWEVER PT STATES SHE HAD A BM "THE DAY BEFORE YESTERDAY". BOWEL SOUNDS PRESENT. SOME VISUAL HALLUCINATIONS PRESENT. VSS. NO ACUTE CHANGES. CALL LIGHT WITHIN REACH.
--- NOTE | 2020-12-09 18:33 | NUR ---
END OF SHIFT SUMMARY: PATIENT LABILE AT TIMES. PATIENT REDIRECTABLE AND CALMS DOWN WITH CONVERSATION. PATIENT MEDICATED ONCE FOR GENERAL PAIN. PATIENT INDEPENDENT IN THE ROOM. PATIENT EXPRESSED CONCERNS ABOUT BLEEDING FROM HER RIGHT ARM. NO PUNCTURE OR ACTIVE BLEEDING NOTED. PATIENT ALSO REPORTED CONCERNS ABOUT BLOOD IN HER STOOL. PATIENT HAD A LARGE STOOL IN THE SHOWER. NO BLOOD NOTED. STOOL WAS FORMED AND BROWN. PATIENT HAS HALLUCINATIONS AT TIME THAT DID NOT APPEAR TO CAUSE DISTRESS. EX: PATIENT THROUGHT THAT THERE WAS A SHIRT AT THE BASE OF THE IV POLE. PATIENT CONTINUED TO INSIST THAT THE SHIRT WAS THERE AFTER THE POLE AND FURNITURE WERE MOVED. PATIENT WAS IN NO DISTRESS ABOUT THIS SITUATION. PATIENT EXPRESSED CONCERN ABOUT HER PHONE. CALLED HER SON PERLITA TO VERIFY THAT HE HAS HER PHONE. HE CONFIRMED THIS.
--- NOTE | 2020-12-10 05:11 | NUR ---
TITLE ONE READING TEACHER SUMMARY PT A/O X1, SLEPT GREAT OVERNIGHT. DENIES PAIN, SOB. STANDBY ASSIST. VSS. NO ACUTE CHANGES. HARD TO RE-DIRECT AT TIMES AND EASILY AGITATED. WILL CONTINUE TO MONITOR.
[2020-12-10] MEDS ORDERED: CLON.1 PO (12:37)
[2020-12-10] MEDS ORDERED: LOSA50 PO (12:38)
[2020-12-10] MEDS ORDERED: LEVSOD100 PO (12:38)
[2020-12-10] MEDS ORDERED: QUET100 PO (12:39)
--- NOTE | 2020-12-10 15:20 | NUR ---
DISCHARGE SUMMARY PT DISCHARGE @ APPROX 1520 BY SHOWER ENCLOSURE INSTALLER VIA WHEELCHAIR. PT WAS OCCOMPANIED BY HER SON WHO SHE IS GOING TO BE LIVING WITH. NO IV ACCESS AT TIME OF DC. PT STATED SHE HAD HER BELONGINGS. DISCHARGE INSTRUCTIONS WERE REVIEWED WITH SON IN PERSON AT TIME OF DISCHARGE. HARD RX FOR OXY WAS GIVEN TO SON, RX NEEDED FAXED TO PHARMACY OF PT CHOICE ([facility]).
== END 2020-12-10 15:17 | disposition home health service (06) | DRG 643 ==
LOC: ER 14:13 → MEDS 14:14 → PCU 17:45 → MEDS 19:10 → PCU 19:21 → MEDS 19:21 → PCU 11-04 01:12 → MEDS 11-05 10:45
PROVIDERS: Emergency Medicine; Internal Medicine; ADMIT Internal Medicine
DX: E03.9 Hypothyroidism, unspecified (principal); E03.5 Myxedema coma; G93.40 Encephalopathy, unspecified; N17.9 Acute kidney failure, unspecified; F03.91 Unspecified dementia, unspecified severity, with behavioral disturbance; I48.20 Chronic atrial fibrillation, unspecified; G89.4 Chronic pain syndrome; J44.9 Chronic obstructive pulmonary disease, unspecified; E11.22 Type 2 diabetes mellitus with diabetic chronic kidney disease; I12.9 Hypertensive chronic kidney disease with stage 1 through stage 4 chronic kidney disease, or unspecified chronic kidney disease; N18.30 Chronic kidney disease, stage 3 unspecified; E87.6 Hypokalemia; I34.0 Nonrheumatic mitral (valve) insufficiency; Z23 Encounter for immunization; M32.9 Systemic lupus erythematosus, unspecified; Z79.01 Long term (current) use of anticoagulants; M79.7 Fibromyalgia
CPT/HCPCS: 36415; 70450; 71045; 76770; 80048; 80053; 80069; 80400; 81001; 82140; 82533; 82947; 83735; 83880; 84132; 84439; 84443; 85025; 85027; 85610; 93005; 93010; 94762; 97110; 97161; 97165; 97530; 97535; 99285-25; A9270; G0008; G0378; G0480; J0360; J0834; J3010; J3480; J7030; J7040; P9612; Q2038

== ENCOUNTER 2021-05-01 12:30 | Emergency (ER) | payer OTHER, MEDICARE ==
[~2021-05-01] VITALS: Ht 154.9 cm; Wt 72.6 kg
[~2021-05-01 12:30] MED LIST changes: +CLON.1 PO; +ELIQUIS5 MG PO; +FUROSEMIDE40 MG PO; +LOSA50 PO; +OXYCONTIN30 MG PO; +PLAVIX75 MG PO; +QUET100 PO; +ROXICODONE5 MG PO
== END 2021-05-01 18:00 | disposition other institution (70) ==
LOC: ER 12:30
DX: S00.12XA Contusion of left eyelid and periocular area, initial encounter (principal); J44.9 Chronic obstructive pulmonary disease, unspecified; I10 Essential (primary) hypertension; E11.9 Type 2 diabetes mellitus without complications; Z91.040 Latex allergy status; Z88.2 Allergy status to sulfonamides; Z88.1 Allergy status to other antibiotic agents; Z91.018 Allergy to other foods; Z79.02 Long term (current) use of antithrombotics/antiplatelets; Z79.01 Long term (current) use of anticoagulants; Z79.899 Other long term (current) drug therapy; Z87.891 Personal history of nicotine dependence; W01.190A Fall on same level from slipping, tripping and stumbling with subsequent striking against furniture, initial encounter
CPT/HCPCS: 51702; 70450; 70480; 93005; 93010; 96374-59; 99285-25; J1956

== ENCOUNTER → 2021-06-11 | Outpatient (CLI) | payer MEDICARE, OTHER ==
[2021-06-11 18:09] LABS: CHOL/HDL RATIO 2.6; Cholesterol 180 mg/dL (50-200); HDL Cholesterol 69 mg/dL (>39); LDL/HDL RATIO 1.4; Low Density Lipoprotein Chol 97 mg/dL (0-110); Triglycerides 72 mg/dL (30-160); Very Low Density Lipoprot Chol 14 mg/dL (6-32)
== END | disposition home or self-care (01) ==
LOC: LAB SHORT 13:57 → LAB 13:57
PROVIDERS: Nurse Practitioner
DX: E78.5 Hyperlipidemia, unspecified (principal); E03.9 Hypothyroidism, unspecified; E11.9 Type 2 diabetes mellitus without complications
CPT/HCPCS: 80061; 83036; 84443

== ENCOUNTER 2021-08-12 15:15 | Inpatient (IN) | payer MEDICARE, OTHER ==
[~2021-08-12] VITALS: Ht 152.4 cm; Wt 74.0 kg
[2021-08-12 15:49] LABS: BASOPHILS ABSOLUTE AUTO 0.01 K/mm3 (0.00-0.23); BASOPHILS PERCENT AUTO 0 % (0-2); EOSINOPHILS PERCENT AUTO 0 % (0-6); Hematocrit 46.7 % (33.0-51.0); Hemoglobin 14.1 g/dL (11.5-16.0); IMMATURE GRAN ABSOLUTE AUTO 0.05 K/mm3 (0.00-0.10); IMMATURE GRAN PERCENT AUTO 0 % (0-1); LYMPHOCYTES ABSOLUTE AUTO 1.03 K/mm3 (0.84-5.20); LYMPHOCYTES PERCENT AUTO 9 % (21-46); MONOCYTES ABSOLUTE AUTO 0.45 K/mm3 (0.16-1.47); MONOCYTES PERCENT AUTO 4 % (4-13); Mean Corpuscular HGB 27.7 pg (26.0-34.0); Mean Corpuscular HGB Conc 30.2 g/dL (31.5-36.5); Mean Corpuscular Volume 92 fL (80-100); Mean Platelet Volume 12.3 fL (9.1-12.4); NEUTROPHILS PERCENT AUTO 87 % (41-73); Platelet Count 187 K/mm3 (150-400); RDW Coefficient Variation 13.3 % (11.7-14.2); RDW Standard Deviation 45.1 fL (35.1-46.3); Red Blood Cell Count 5.09 M/mm3 (3.80-5.20); White Blood Cell Count 11.54 K/mm3 (4.00-11.30)
[2021-08-12 15:55] LABS: Source, Urine Catheter
[2021-08-12 16:05] LABS: International Normalized Ratio 1.09; Prothrombin Time Results 11.4 Sec (9.7-11.5)
[2021-08-12 16:05] LABS: Appearance, Urine Clear (Clear); Bilirubin, Urine Neg (Neg); Blood, Urine 2+ (Neg); Color, Urine Amber (P-Yellow); Glucose Qualitative, Urine Neg (Neg); Ketones, Urine Neg (Neg); Leukocyte Esterase, Urine Neg (Neg); Nitrite, Urine Neg (Neg); Protein, Urine 4+ (Neg); Specific Gravity, Urine 1.025 (1.003-1.022); Urobilinogen, Urine NORM (Normal)
[2021-08-12 16:12] LABS: Bacteria Few /hpf; Squamous Epithelial Cells Rare /hpf (Few); White Blood Cells, Urine 0-2 /hpf (0-5)
[2021-08-12 16:14] LABS: Alanine Aminotransfer (ALT/SGP 74 U/L (12-78); Albumin, Blood 3.6 g/dL (3.4-5.0); Albumin/Globulin Ratio 0.8 (0.8-1.8); Alk Phos 111 U/L (50-136); Anion Gap 4 mmol/L (6-16); Aspartate Aminotrans (AST/SGOT 65 U/L (12-37); Blood Urea Nitrogen 23 mg/dL (8-24); Bun/Creatinine Ratio 30.6 (12.0-20.0); CO2, Blood 33 mmol/L (21-32); Calcium, Blood 10.6 mg/dL (8.5-10.1); Chloride, Blood 102 mmol/L (98-108); Creatinine, Blood 0.75 mg/dL (0.40-1.00); Ethanol (Alcohol), Blood, Med <3 mg/dL; Globulin, Blood 4.3 g/dL (2.2-4.0); Glomerular Filtration Rate >60 (60-); Glucose, Blood 185 mg/dL (70-99); Potassium, Blood 4.4 mmol/L (3.5-5.5); Sodium, Blood 139 mmol/L (136-145); Total Protein, Blood 7.9 g/dL (6.4-8.2); Troponin I <0.015 ng/mL (0.000-0.040)
[2021-08-12 16:34] LABS: U Oxycodone Screen DETECTED
[2021-08-12 16:35] LABS: U Amphetamine Screen Not Detected; U Barbituate Screen Not Detected; U Benzodiazapine Screen Not Detected; U Buprenorphine Screen Not Detected; U Cannabinoids Screen Not Detected; U Cocaine Screen Not Detected; U Methadone Screen Not Detected; U Methamphetamine Screen Not Detected; U Opiates Screen Not Detected; U Phencyclidine Screen Not Detected; U Propoxyphene Screen Not Detected
[2021-08-12 16:41] LABS: Influenza A, PCR NEGATIVE (NEGATIVE); Influenza B, PCR NEGATIVE (NEGATIVE); Resp Syncytial Virus, PCR NEGATIVE (NEGATIVE); SARS-Cov-2 (COVID-19) PCR, MMC NEGATIVE (NEGATIVE)
[2021-08-12 18:51] LABS: Bicarbonate Venous 31.9 mmol/L (24.0-30.0); PO2 Venous 139 mmHg (38-42); pH Blood Venous 7.24 (7.34-7.37)
--- NOTE | 2021-08-12 23:54 | NUR ---
DR CARNEY WAS CALLED TO ASK IF THE PATIENT ORAL XARELTO COULD BE SWITCHED TO LOVENOX SHOT BECAUSE THE PATIENT WAS NOT ALERT ENOUGH TO TAKE ANYTHING PO. NEW ORDER WERE PUT IN.
[2021-08-13 04:04] LABS: BASOPHILS ABSOLUTE AUTO 0.01 K/mm3 (0.00-0.23); BASOPHILS PERCENT AUTO 0 % (0-2); EOSINOPHILS PERCENT AUTO 0 % (0-6); Hematocrit 42.6 % (33.0-51.0); Hemoglobin 13.1 g/dL (11.5-16.0); IMMATURE GRAN ABSOLUTE AUTO 0.03 K/mm3 (0.00-0.10); IMMATURE GRAN PERCENT AUTO 0 % (0-1); LYMPHOCYTES ABSOLUTE AUTO 1.18 K/mm3 (0.84-5.20); LYMPHOCYTES PERCENT AUTO 14 % (21-46); MONOCYTES ABSOLUTE AUTO 0.92 K/mm3 (0.16-1.47); MONOCYTES PERCENT AUTO 11 % (4-13); Mean Corpuscular HGB 28.1 pg (26.0-34.0); Mean Corpuscular HGB Conc 30.8 g/dL (31.5-36.5); Mean Corpuscular Volume 91 fL (80-100); Mean Platelet Volume 12.4 fL (9.1-12.4); NEUTROPHILS ABSOLUTE AUTO 6.54 K/mm3 (1.96-9.15); NEUTROPHILS PERCENT AUTO 75 % (41-73); Platelet Count 156 K/mm3 (150-400); RDW Coefficient Variation 13.3 % (11.7-14.2); RDW Standard Deviation 45.2 fL (35.1-46.3); Red Blood Cell Count 4.67 M/mm3 (3.80-5.20); White Blood Cell Count 8.68 K/mm3 (4.00-11.30)
[2021-08-13 04:25] LABS: Anion Gap 1 mmol/L (6-16); Blood Urea Nitrogen 24 mg/dL (8-24); Bun/Creatinine Ratio 31.5 (12.0-20.0); CO2, Blood 36 mmol/L (21-32); Calcium, Blood 9.7 mg/dL (8.5-10.1); Chloride, Blood 103 mmol/L (98-108); Creatinine, Blood 0.76 mg/dL (0.40-1.00); Glomerular Filtration Rate >60 (60-); Glucose, Blood 125 mg/dL (70-99); Potassium, Blood 3.9 mmol/L (3.5-5.5); Sodium, Blood 140 mmol/L (136-145)
--- NOTE | 2021-08-13 07:33 | NUR ---
SHIFT SUMMARY PATIENT IS RESTING COMFORTABLY IN THE BED. BED IS IN LOW POSITION. CALL LIGHT IS IN REACH. THE PATIENT WAS A NEW ADMIT TO THE FLOOR. SHE WAS VERY LETHARGIC AND UNABLE TO ANSWER ANY QUESTIONS. PATIENT WAS MADE VERY COMFORTABLY AND WAS CHECKED ON FREQUENTLY. THIS MORNING THE PATIENT WAS ABLE TO WAKE UP MORE AND SHE WAS ABLE TO TALK TO THE RN AND AIDE. PATIENT STATED SHE WANTED TO DRINK WATER AND SHE WAS INFORMED SHE IS STILL NPO AND THE DOCTORS WILL BE IN TO SEE HER THIS MORNING. THE PATIENT IS STILL ON THE AMIO DRIP AT 0.5 MG/HR AT 16.6 ML/HR. VITALS HER BEEN STABLE. WILL CONTINUE TO MONITOR. REPORT GIVEN TO DAY SHIFT RN.
--- NOTE | 2021-08-13 09:15 | NUR ---
ECHO AT BEDSIDE. HOLDING MORNING PO MEDICATIONS UNTIL PATIENT NOT ON BIPAP AND PROCEDURE IS COMPLETE.
--- NOTE | 2021-08-13 18:05 | NUR ---
SHIFT SUMMARY UPON ASSESSMENT PATIENT WAS LETHARGIC AND SLOW TO RESPOND WITH BIPAP IN PLACE. PATIENT BEGAN TO WAKE UP SHE BECAME MORE ALERT AND WAS ABLE TO TAKE A BREAK FROM BIPAP AND USE 10L VIA OXYMIZER. PATIENT ABLE TO TOLERATE OXYMIZER LONG ENOUGH FOR LUNCH AND PO MEDICATIONS. BIPAP PUT BACK ON AFTER LUNCH, SETTINGS ARE 16/6/55% FIO2 WITH OXYGEN SATURATION ABOVE 90%. AMIO GTT INFUSING AT 0.5 MG/HR AT 16.6 ML/HR. CAVANAUGH IN PLACE DRAINING TO GRAVITY. VITAL SIGNS STABLE T/O SHIFT. NO OTHER SIGNIFICANT CHANGES TO PATIENT'S STATUS, WILL REPORT TO DIETETIC ASSISTANT RN.
--- NOTE | 2021-08-13 19:55 | NUR ---
AMIODARONE DRIP WAS TURNED OFF AT 1952 WHEN THE BAG WAS EMPTY WILL CONTINUE TO MONITOR.
--- NOTE | 2021-08-14 04:47 | NUR ---
PATIENT IS REFUSING LABS THIS MORNING. RN WENT TO TALK TO HER AND SHE STATED THE BLOOD CAN COME OUT OF HER IV AND WHEN RN TOLD HER THE PERIPHERAL IV WILL NOT DRAW BLOOD SHE STATED THE NURSE IS HIGH ON DRUGS AND DOES NOT BELIEVE HER THAT THE IV DRAWS BLOOD. TALKED TO CHARGE AND AGREED WE WILL TRY AGAIN LATER.
--- NOTE | 2021-08-14 06:12 | NUR ---
SHIFT SUMMARY PATIENT IS RESTING IN BED COMFORTABLY. BED IS IN LOW POSITION. CALL LIGHT IS IN REACH. THE PATIENT IS INTERMITTENTLY CONFUSED AND WHEN RN TRIES TO REORIENT HER SHE BECOMES AGITATED AND IRRITATED AT THE RN. SHE WOULD MAKE STATEMENTS AND ACCUSATIONS THE RN IS LYING TO HER. PATIENT WAS ALBE TO SLEEP FOR A COULE HOURS ON BIPAP. SWITCHED HER TO THE OXYMIZER THIS MORNING TO TALK TO HER ABOUT REFUSING LABS THEN SHE REFUSED TO PUT THE BIPAP BACK ON. SHE IS CURRENTLY ON THE OXYMIZER AT 12L. SHE ALSO HAD A LARGE BOWEL MOVEMENT. CAVANAUGH IS PATENT AND DRAINING CLEAR YELLOW URINE. Q2 TURNS AND WAS COOPERATIVE WITH THAT. VITAL HAVE BEEN STABLE UNTIL ABOUT AN HOUR AGO IT WAS ELEVATED BUT PATIENT WAS UPSET WITH RN WILL RECHECK THEN FOLLOW UP. NO ACUTE CHANGES. WILL CONTINUE TO MONITOR. REPORT WILL BE GIVEN TO DAY SHIFT RN.
[2021-08-14 08:09] LABS: BASOPHILS ABSOLUTE AUTO 0.02 K/mm3 (0.00-0.23); BASOPHILS PERCENT AUTO 0 % (0-2); EOSINOPHILS ABSOLUTE AUTO 0.01 K/mm3 (0.00-0.68); EOSINOPHILS PERCENT AUTO 0 % (0-6); Hematocrit 40.4 % (33.0-51.0); Hemoglobin 12.7 g/dL (11.5-16.0); IMMATURE GRAN ABSOLUTE AUTO 0.03 K/mm3 (0.00-0.10); IMMATURE GRAN PERCENT AUTO 0 % (0-1); LYMPHOCYTES ABSOLUTE AUTO 1.09 K/mm3 (0.84-5.20); LYMPHOCYTES PERCENT AUTO 10 % (21-46); MONOCYTES ABSOLUTE AUTO 0.87 K/mm3 (0.16-1.47); MONOCYTES PERCENT AUTO 8 % (4-13); Mean Corpuscular HGB 28.8 pg (26.0-34.0); Mean Corpuscular HGB Conc 31.4 g/dL (31.5-36.5); Mean Corpuscular Volume 92 fL (80-100); Mean Platelet Volume 12.7 fL (9.1-12.4); NEUTROPHILS ABSOLUTE AUTO 8.78 K/mm3 (1.96-9.15); NEUTROPHILS PERCENT AUTO 81 % (41-73); Platelet Count 145 K/mm3 (150-400); RDW Coefficient Variation 13.3 % (11.7-14.2); RDW Standard Deviation 45.5 fL (35.1-46.3); Red Blood Cell Count 4.41 M/mm3 (3.80-5.20)
[2021-08-14 08:35] LABS: Anion Gap 0 mmol/L (6-16); Blood Urea Nitrogen 26 mg/dL (8-24); Bun/Creatinine Ratio 29.5 (12.0-20.0); CO2, Blood 40 mmol/L (21-32); Calcium, Blood 9.8 mg/dL (8.5-10.1); Chloride, Blood 102 mmol/L (98-108); Creatinine, Blood 0.88 mg/dL (0.40-1.00); Glomerular Filtration Rate >60 (60-); Glucose, Blood 118 mg/dL (70-99); Potassium, Blood 3.8 mmol/L (3.5-5.5); Sodium, Blood 142 mmol/L (136-145)
--- NOTE | 2021-08-14 12:06 | NUR ---
UPDATE PATIENT CALLED THIS RN TO NOTIFY OF PATIENT "NOT FEELING VERY GOOD". RN REASSESSED PATIENT. PATIENT EDUCATED ON IMPORTANCE OF BIPAP INSTEAD OF WEARING OXYMIZER. PATIENT ARGUMENTATIVE ON THIS TOPIC BUT IS WILLING TO TRY. BIPAP IN PLACE, SETTINGS AT 16/6/45% FIO2. PATIENT NOW RESTING WITH NO COMPLAINTS.
--- NOTE | 2021-08-14 15:23 | NUR ---
CONSULT DR. TALAVERA AT BEDSIDE FOR CARDIOLOGY CONSULT
--- NOTE | 2021-08-14 16:13 | NUR ---
SHIFT SUMMARY PATIENT RESTING IN BED COMFORTABLY. PATIENT IS FORGETFUL AT TIMES BUT AGITATES EASILY WHEN ATTEMPTING TO REORIENT. PATIENT ON OXYMIZER THIS MORNING ON ASSESSMENT, TOLERATED UNTIL LUNCH AND WENT BACK ON BIPAP. BIPAP SETTINGS REMAIN AT 16/6/45% FIO2. THIS RN AND RESPIRATORY THERAPIST ATTEMPTING TO TITRATE OXYGEN T/O SHIFT. PATIENT CURRENTLY ON 6L OXYMIZER WITH OXYGEN SATURATION ABOVE 90%. CAVANAUGH IN PLACE DRAINING TO GRAVIY. NO OTHER SIGNIFICANT CHANGES TO PATIENT'S STATUS THIS SHIFT. WILL REPORT TO DOCUMENT PREPARATION SPECIALIST RN.
[2021-08-15 04:29] LABS: BASOPHILS ABSOLUTE AUTO 0.02 K/mm3 (0.00-0.23); BASOPHILS PERCENT AUTO 0 % (0-2); EOSINOPHILS ABSOLUTE AUTO 0.07 K/mm3 (0.00-0.68); EOSINOPHILS PERCENT AUTO 1 % (0-6); Hematocrit 40.2 % (33.0-51.0); Hemoglobin 12.5 g/dL (11.5-16.0); IMMATURE GRAN ABSOLUTE AUTO 0.03 K/mm3 (0.00-0.10); IMMATURE GRAN PERCENT AUTO 0 % (0-1); LYMPHOCYTES ABSOLUTE AUTO 1.43 K/mm3 (0.84-5.20); LYMPHOCYTES PERCENT AUTO 17 % (21-46); MONOCYTES ABSOLUTE AUTO 0.96 K/mm3 (0.16-1.47); MONOCYTES PERCENT AUTO 11 % (4-13); Mean Corpuscular HGB 28.6 pg (26.0-34.0); Mean Corpuscular HGB Conc 31.1 g/dL (31.5-36.5); Mean Corpuscular Volume 92 fL (80-100); Mean Platelet Volume 12.1 fL (9.1-12.4); NEUTROPHILS ABSOLUTE AUTO 5.95 K/mm3 (1.96-9.15); NEUTROPHILS PERCENT AUTO 70 % (41-73); Platelet Count 135 K/mm3 (150-400); RDW Coefficient Variation 13.2 % (11.7-14.2); RDW Standard Deviation 44.7 fL (35.1-46.3); Red Blood Cell Count 4.37 M/mm3 (3.80-5.20); White Blood Cell Count 8.46 K/mm3 (4.00-11.30)
[2021-08-15 04:54] LABS: Anion Gap Unable to Calculate mmol/L (6-16); Blood Urea Nitrogen 19 mg/dL (8-24); Bun/Creatinine Ratio 22.6 (12.0-20.0); CO2, Blood 43 mmol/L (21-32); Calcium, Blood 9.3 mg/dL (8.5-10.1); Chloride, Blood 104 mmol/L (98-108); Creatinine, Blood 0.84 mg/dL (0.40-1.00); Glomerular Filtration Rate >60 (60-); Glucose, Blood 114 mg/dL (70-99); Potassium, Blood 3.7 mmol/L (3.5-5.5); Sodium, Blood 144 mmol/L (136-145)
--- NOTE | 2021-08-15 05:21 | NUR ---
JAVA APPLICATION ENGINEER SUMMARY PT IS AXO X 3-4 THIS SHIFT W MOMENTS OF CONFUSION ABOUT STAFF AND CONVERSATIONS. PT MAINTAINED O2 SATS >90% ON 4L NC THIS SHIFT. BP WNL THIS SHIFT W A FEW HOURS FOLLOWING HS BP MED WHERE HER BP WAS SOFT. TELE SHOWING AFIB 90'S THIS SHIFT. CAVANAUGH PATENT AND DRAINING CLEAR YELLOW URINE THIS SHIFT.PT SLEPT COMFORTABLY FOR MOST OF THE SHIFT. WILL REPORT TO ONCOMING RN.
--- NOTE | 2021-08-15 11:03 | NUR ---
TRANSFER REPORT GIVEN TO MEDICAL FLOOR NURSE. PATIENT TRANSFERRED TO ROOM 339 WITH ALL PERSONAL BELONGINGS AND MEDICATIONS. TRANSFERRED VIA BED ON 4L NC. PATIENT APPEARS ANGRY ABOUT ROOM CHANGE. RN EDUCATED PATIENT ABOUT HEALTH STATUS AND THE NEED FOR TRANSFER.
--- NOTE | 2021-08-15 19:25 | NUR ---
SHIFT SUMMARY: ASSUMED CARE OF PATIENT AT 1040 UPON HER TRANSFER FROM PCU. A&O X 3, BUT CAN BE UNCOOPERATIVE AND MEAN AT TIMES. VERIFIED TELEMETRY BOX WITH PULL OVER, AFIB 90'S. O2 @ 4 L/MIN NC, LUNG SOUNDS COARSE THROUGHOUT. CAVANAUGH DRAINING CLEAR YELLOW URINE. POOR APPETITE, ONLY WANTS TO EAT OATMEAL. REFUSES REPOSITIONING AT TIMES WELL DESPITE EDUCATION ABOUT PRESSURE ULCER PREVENTION. HAS CHRONIC PAIN.
--- NOTE | 2021-08-15 19:38 | NUR ---
SON: PERLITA [phone].
[2021-08-15] MEDS ORDERED: METF500C PO (22:05)
[2021-08-15] MEDS ORDERED: TIMDOROPSO BOTHEYES (22:07)
[2021-08-15] MEDS ORDERED: SPIR25 PO (22:09)
--- NOTE | 2021-08-16 04:41 | NUR ---
PT SLEPT WELL. AAO. ARGUMENTATIVE AND IRRITABLE. SHE TAKES MED SELECTIVELY. REFUSED CLONIDINE LAST NIGHT. VSS. CAVANAUGH PATENT DRAINING CLEAR YELLOW URINE. SAFETY MEASURES MAINTAINED. CALL LIGHT WITHIN REACH.
[2021-08-16 06:34] LABS: Hematocrit 44.5 % (33.0-51.0); Hemoglobin 13.4 g/dL (11.5-16.0); Mean Corpuscular HGB 27.9 pg (26.0-34.0); Mean Corpuscular HGB Conc 30.1 g/dL (31.5-36.5); Mean Corpuscular Volume 93 fL (80-100); Mean Platelet Volume 11.9 fL (9.1-12.4); Platelet Count 133 K/mm3 (150-400); RDW Coefficient Variation 13.2 % (11.7-14.2); Red Blood Cell Count 4.81 M/mm3 (3.80-5.20); White Blood Cell Count 8.93 K/mm3 (4.00-11.30)
[2021-08-16 06:55] LABS: Anion Gap Unable to Calculate mmol/L (6-16); Blood Urea Nitrogen 19 mg/dL (8-24); Bun/Creatinine Ratio 22.7 (12.0-20.0); CO2, Blood 43 mmol/L (21-32); Calcium, Blood 9.7 mg/dL (8.5-10.1); Chloride, Blood 100 mmol/L (98-108); Creatinine, Blood 0.84 mg/dL (0.40-1.00); Glomerular Filtration Rate >60 (60-); Glucose, Blood 111 mg/dL (70-99); Potassium, Blood 3.9 mmol/L (3.5-5.5); Sodium, Blood 142 mmol/L (136-145)
[2021-08-16] MEDS ORDERED: AMIODARONE HCL400 M2 PO ×2 (15:53→15:56)
[2021-08-16] MEDS ORDERED: POTA20LUD PO (15:57)
[2021-08-16] MEDS ORDERED: ALBU90OI INH (15:57)
--- NOTE | 2021-08-16 17:46 | NUR ---
SHIFT SUMMARY PATIENT ALERT AND ORIENTED THIS SHIFT. PATIENT WORKED WITH PT AND GOT UP TO THE CHAIR FOR BREAKFAST THIS AM. PATIENT BACK TO BED AND STAYED THROUGHOUT THE AFTERNOON. PATIENT COMPLIANT WITH CARE, YET PARTICULAR WITH DETAILS. PATIENT CURRENTLY SITTING UP IN BED EATING DINNER.
[2021-08-17 06:00] LABS: Hematocrit 43.6 % (33.0-51.0); Hemoglobin 13.2 g/dL (11.5-16.0); Mean Corpuscular HGB Conc 30.3 g/dL (31.5-36.5); Mean Corpuscular Volume 92 fL (80-100); Mean Platelet Volume 11.8 fL (9.1-12.4); Platelet Count 138 K/mm3 (150-400); RDW Coefficient Variation 13.3 % (11.7-14.2); RDW Standard Deviation 44.9 fL (35.1-46.3); Red Blood Cell Count 4.72 M/mm3 (3.80-5.20); White Blood Cell Count 9.37 K/mm3 (4.00-11.30)
[2021-08-17 06:24] LABS: Anion Gap 0 mmol/L (6-16); Blood Urea Nitrogen 20 mg/dL (8-24); Bun/Creatinine Ratio 22.7 (12.0-20.0); CO2, Blood 41 mmol/L (21-32); Calcium, Blood 9.4 mg/dL (8.5-10.1); Chloride, Blood 102 mmol/L (98-108); Creatinine, Blood 0.88 mg/dL (0.40-1.00); Glomerular Filtration Rate >60 (60-); Glucose, Blood 116 mg/dL (70-99); Potassium, Blood 3.8 mmol/L (3.5-5.5); Sodium, Blood 143 mmol/L (136-145)
--- NOTE | 2021-08-17 06:50 | NUR ---
SHIFT SUMMARY PT IS A 76 Y/O FEMALE, ADMITTED FOR TOXIC METABOLIC ENCEPHALOPATHY. SHE IS A&O X 3, DEMANDING AND IRRITABLE AT TIMES. SHE IS ON 4L O2 VIA NC, SATTING > 90%. TELE SHOWED AFIB IN THE 60S WHILE SLEEPING. ALL OTHER VITALS STABLE. NO C/O ACUTE PAIN, NAUSEA OR SOB. PT REFUSED HER HS SEROQUEL, SAYING "I DON'T WANT THE PILL THAT WILL MAKE ME SLEEP". NO OTHER ACUTE CHANGES IN PT CONDITION NOTED DURING THE NIGHT. WILL CONTINUE TO MONITOR AND TREAT PER EMAR UNTIL HAND OFF TO DAY SHIFT RN.
--- NOTE | 2021-08-17 16:37 | NUR ---
DISCHARGE NOTE PT WAS DISCHARGED BY WHEELCHAIR VAN HOME ON 4L 02 @1630. BLUE FOLDER IS TUCKED IN HER PATIENT BELONGINGS BAG AND ALL DISCHARGE INFORMATION GONE OVER. KEI IS AWARE SHE IS COMING HOME.
== END 2021-08-17 16:36 | disposition home health service (06) | DRG 291 ==
LOC: ER 15:15 → PCU 18:20 → MEDS 08-15 10:48
PROVIDERS: Emergency Medicine; Family Medicine; ADMIT Internal Medicine
PROC: 5A09457 Assistance with Respiratory Ventilation, 24-96 Consecutive Hours, Continuous Positive Airway Pressure (ICD-10-PCS; principal; 2021-08-12)
DX: I11.0 Hypertensive heart disease with heart failure (principal); G92.8 Other toxic encephalopathy; J96.21 Acute and chronic respiratory failure with hypoxia; I50.33 Acute on chronic diastolic (congestive) heart failure; J96.22 Acute and chronic respiratory failure with hypercapnia; I48.20 Chronic atrial fibrillation, unspecified; J44.1 Chronic obstructive pulmonary disease with (acute) exacerbation; I47.2 Ventricular tachycardia; M32.9 Systemic lupus erythematosus, unspecified; M79.7 Fibromyalgia; K59.09 Other constipation; Z66 Do not resuscitate; Z20.822 Contact with and (suspected) exposure to COVID-19; E03.9 Hypothyroidism, unspecified; E66.01 Morbid (severe) obesity due to excess calories; E11.9 Type 2 diabetes mellitus without complications; I08.3 Combined rheumatic disorders of mitral, aortic and tricuspid valves; I27.20 Pulmonary hypertension, unspecified; G89.4 Chronic pain syndrome; H40.9 Unspecified glaucoma; F03.90 Unspecified dementia, unspecified severity, without behavioral disturbance, psychotic disturbance, mood disturbance, and anxiety; Z86.74 Personal history of sudden cardiac arrest; Z90.49 Acquired absence of other specified parts of digestive tract; Z91.041 Radiographic dye allergy status; Z88.2 Allergy status to sulfonamides; Z88.1 Allergy status to other antibiotic agents; Z91.013 Allergy to seafood; Z88.8 Allergy status to other drugs, medicaments and biological substances; Z90.89 Acquired absence of other organs; Z79.01 Long term (current) use of anticoagulants; Z98.890 Other specified postprocedural states; Z98.49 Cataract extraction status, unspecified eye; Z87.891 Personal history of nicotine dependence; Z99.81 Dependence on supplemental oxygen; Z91.14 Patient's other noncompliance with medication regimen; Z71.3 Dietary counseling and surveillance; Z68.35 Body mass index [BMI] 35.0-35.9, adult
CPT/HCPCS: 0241U; 36415; 51702; 70450; 71045; 80048; 80053; 81001; 82140; 82550; 82803; 82947; 83880; 84145; 84443; 84484; 85025; 85027; 85610; 85730; 93005; 93010; 93306; 94640; 94660; 94762; 96365; 96375; 97110; 97162; 99285-25; A9270; C1751; G0480; J0282; J0696; J1650; J1940; J7060

== ENCOUNTER 2021-09-17 22:39 | Emergency (ER) | payer MEDICARE, OTHER ==
[~2021-09-17] VITALS: Ht 157.5 cm; Wt 72.6 kg
[~2021-09-17 22:39] MED LIST changes: +AMIODARONE HCL400 M2 PO; +METF500C PO; +POTA20LUD PO; +SPIR25 PO; +TIMDOROPSO BOTHEYES
[2021-09-17 23:17] LABS: BASOPHILS ABSOLUTE AUTO 0.02 K/mm3 (0.00-0.23); BASOPHILS PERCENT AUTO 0 % (0-2); EOSINOPHILS ABSOLUTE AUTO 0.08 K/mm3 (0.00-0.68); EOSINOPHILS PERCENT AUTO 1 % (0-6); Hematocrit 44.7 % (33.0-51.0); Hemoglobin 13.5 g/dL (11.5-16.0); IMMATURE GRAN ABSOLUTE AUTO 0.03 K/mm3 (0.00-0.10); IMMATURE GRAN PERCENT AUTO 0 % (0-1); LYMPHOCYTES ABSOLUTE AUTO 1.66 K/mm3 (0.84-5.20); LYMPHOCYTES PERCENT AUTO 18 % (21-46); MONOCYTES ABSOLUTE AUTO 0.77 K/mm3 (0.16-1.47); MONOCYTES PERCENT AUTO 8 % (4-13); Mean Corpuscular HGB 27.3 pg (26.0-34.0); Mean Corpuscular HGB Conc 30.2 g/dL (31.5-36.5); Mean Corpuscular Volume 91 fL (80-100); Mean Platelet Volume 11.3 fL (9.1-12.4); NEUTROPHILS PERCENT AUTO 72 % (41-73); Platelet Count 142 K/mm3 (150-400); RDW Standard Deviation 46.3 fL (35.1-46.3); Red Blood Cell Count 4.94 M/mm3 (3.80-5.20); White Blood Cell Count 9.16 K/mm3 (4.00-11.30)
[2021-09-17 23:48] LABS: Anion Gap 5 mmol/L (6-16); Blood Urea Nitrogen 21 mg/dL (8-24); Bun/Creatinine Ratio 25.1 (12.0-20.0); CO2, Blood 38 mmol/L (21-32); Calcium, Blood 9.5 mg/dL (8.5-10.1); Chloride, Blood 98 mmol/L (98-108); Creatinine, Blood 0.84 mg/dL (0.40-1.00); Glomerular Filtration Rate >60 (60-); Glucose, Blood 136 mg/dL (70-99); Potassium, Blood 4.3 mmol/L (3.5-5.5); Sodium, Blood 141 mmol/L (136-145); Troponin I <0.015 ng/mL (0.000-0.040)
[2021-09-18 01:18] LABS: Bicarbonate Venous 36.1 mmol/L (24.0-30.0); PCO2 Venous 91.1 mmHg (38-42); pH Blood Venous 7.29 (7.34-7.37)
[2021-09-18] MEDS ORDERED: FUROSEMIDE40 MG PO (01:45)
== END 2021-09-18 02:15 | disposition home or self-care (01) ==
LOC: ER 22:39
PROVIDERS: Student in an Organized Health Care Education/Training Program
DX: J44.1 Chronic obstructive pulmonary disease with (acute) exacerbation (principal); I11.0 Hypertensive heart disease with heart failure; I50.9 Heart failure, unspecified; Z88.8 Allergy status to other drugs, medicaments and biological substances; Z91.041 Radiographic dye allergy status; Z88.2 Allergy status to sulfonamides; Z88.1 Allergy status to other antibiotic agents; Z91.018 Allergy to other foods; Z79.899 Other long term (current) drug therapy; Z79.84 Long term (current) use of oral hypoglycemic drugs; E03.9 Hypothyroidism, unspecified; E11.9 Type 2 diabetes mellitus without complications; F03.90 Unspecified dementia, unspecified severity, without behavioral disturbance, psychotic disturbance, mood disturbance, and anxiety; Z87.891 Personal history of nicotine dependence
CPT/HCPCS: 36415; 71045; 80048; 82803; 83880; 84484; 85025; 93005; 93010; 94640; 96374; 99285-25; J1940

== ENCOUNTER → 2021-10-09 | Outpatient (CLI) | payer MEDICARE, OTHER ==
[2021-10-09 19:14] LABS: Anion Gap 5 mmol/L (6-16); Blood Urea Nitrogen 22 mg/dL (8-24); Bun/Creatinine Ratio 25.8 (12.0-20.0); CO2, Blood 36 mmol/L (21-32); Calcium, Blood 10.1 mg/dL (8.5-10.1); Chloride, Blood 97 mmol/L (98-108); Creatinine, Blood 0.85 mg/dL (0.40-1.00); Glomerular Filtration Rate >60 (60-); Glucose, Blood 124 mg/dL (70-99); Sodium, Blood 138 mmol/L (136-145)
== END | disposition home or self-care (01) ==
LOC: LAB SHORT 18:01
PROVIDERS: Nurse Practitioner
DX: I50.9 Heart failure, unspecified (principal); E03.9 Hypothyroidism, unspecified
CPT/HCPCS: 80048; 84443